=== PATIENT | female | born 1945 | race Caucasian/White ===

== ENCOUNTER 2021-11-30 16:29 | Inpatient (IN) | payer BC, MEDICARE ==
[2021-11-30] MEDS ORDERED: SODIUM CHLORIDE 0.9% 1,000 ML IV STA ×2 (16:36)
--- NOTE | 2021-11-30 16:46 | ED ---
Weakness HPI - General Chief complaint: Weakness Stated complaint: Weakness Time Seen by Provider: 11/30/21 16:30 Source: EMS, RN notes reviewed Mode of arrival: EMS Limitations: physical limitation - History of Present Illness Initial comments: 76-year-old female history of COPD was still smoker who was brought in by EMS because of generalized weakness she was found by family be sitting in a chair when she apparently been for some time she had suffered urinary or fecal incontinence she also is had no food since yesterday. Profoundly weak and could not ambulate. She is brought in by EMS for evaluation she has any chest pain fevers chills nausea vomiting sweats. She does complain of pain to her buttock area she does have evidence of decubitus ulceration to the coccyx area per parents. MD Complaint: generalized weakness - Related Data Home Medications Medication Instructions Recorded Confirmed Albuterol Inhaler [Ventolin Hfa 2 puff INHALATION RT-QID PRN 11/30/21 11/30/21 Inhaler] Aspirin EC [Ecotrin Low Dose] 81 mg PO DAILY PRN 11/30/21 11/30/21 carvediloL [Coreg] 6.25 mg PO BID 11/30/21 11/30/21 Allergies Allergy/AdvReac Type Severity Reaction Status Date / Time No Known Allergies Allergy Verified 11/30/21 18:04 Review of Systems ROS Statement: Those systems with pertinent positive or pertinent negative responses have been documented in the HPI. ROS Other: All systems not noted in ROS Statement are negative. Past Medical History Past Medical History: Hypertension History of Any Multi-Drug Resistant Organisms: None Reported Additional Past Surgical History / Comment(s): D&C Past Psychological History: No Psychological Hx Reported Smoking Status: Current every day smoker Past Alcohol Use History: Daily, Heavy Past Drug Use History: Marijuana General Exam - General Exam Comments Initial Comments: This is a well-developed frail-appearing female who is awake alert oriented 4 Limitations: physical limitation General appearance: alert, in no apparent distress Head exam: Present: atraumatic, normocephalic, normal inspection Eye exam: Present: normal appearance, PERRL, EOMI. Absent: scleral icterus, conjunctival injection, periorbital swelling ENT exam: Present: mucous membranes dry Neck exam: Present: normal inspection. Absent: tenderness, meningismus, lymphadenopathy Respiratory exam: Present: normal lung sounds bilaterally. Absent: respiratory distress, wheezes, rales, rhonchi, stridor Cardiovascular Exam: Present: regular rate, normal rhythm, normal heart sounds. Absent: systolic murmur, diastolic murmur, rubs, gallop, clicks GI/Abdominal exam: Present: soft, normal bowel sounds. Absent: distended, tenderness, guarding, rebound, rigid Rectal exam: Present: other (Examination of the. He'll region reveals a early stage sacral decubitus ulcer with some minimal breakdown. Also a toothpick was found in the patient's previous.) Extremities exam: Present: normal inspection, full ROM, normal capillary refill. Absent: tenderness, pedal edema, joint swelling, calf tenderness Back exam: Present: normal inspection Neurological exam: Present: alert, oriented X3, CN II-XII intact Psychiatric exam: Present: normal affect, normal mood Skin exam: Present: warm, dry, intact, normal color. Absent: rash Course Vital Signs 11/30/21 11/30/21 11/30/21 16:31 17:00 17:47 Temperature 97.5 F L Pulse Rate 93 78 88 Respiratory 18 19 18 Rate Blood Pressure 100/83 100/83 105/61 O2 Sat by Pulse 97 96 97 Oximetry 11/30/21 18:00 Temperature Pulse Rate 80 Respiratory 21 Rate Blood Pressure 105/71 O2 Sat by Pulse 97 Oximetry EKG Findings - EKG Results: EKG: interpreted by LYNNE, sinus rhythm (Sinus rhythm 83 TN interval 142 QRS duration 81 QT/QTC 372/[address]-T wave changes) Medical Decision Making - Medical Decision Making Patient does have an elevated white blood cell count with left shift evidence of urinary tract infection patient also hypomagnesemia dehydration she will be adm itted I did discuss the case with Kylee torres for Dr. Rock - Lab Data Result diagrams: 11/30/21 16:47 11/30/21 16:47 Lab Results 11/30/21 11/30/21 11/30/21 Range/Units 16:47 16:47 16:47 WBC 19.0 H (3.8-10.6) k/uL RBC 5.40 (3.80-5.40) m/uL Hgb 16.1 H (11.4-16.0) gm/dL Hct 50.2 H (34.0-46.0) % MCV 93.0 (80.0-100.0) fL MCH 29.8 (25.0-35.0) pg MCHC 32.0 (31.0-37.0) g/dL RDW 14.3 (11.5-15.5) % Plt Count 147 L (150-450) k/uL MPV 9.6 Neutrophils % 89 % Lymphocytes % 3 % Monocytes % 5 % Eosinophils % 1 % Basophils % 0 % Neutrophils # 17.0 H (1.3-7.7) k/uL Lymphocytes # 0.6 L (1.0-4.8) k/uL Monocytes # 1.0 (0-1.0) k/uL Eosinophils # 0.2 (0-0.7) k/uL Basophils # 0.0 (0-0.2) k/uL PT 11.1 (9.0-12.0) sec INR 1.0 (<1.2) APTT 27.1 (22.0-30.0) sec Sodium (137-145) mmol/L Potassium (3.5-5.1) mmol/L Chloride (98-107) mmol/L Carbon Dioxide (22-30) mmol/L Anion Gap mmol/L BUN (7-17) mg/dL Creatinine (0.52-1.04) mg/dL Est GFR (CKD-EPI)AfAm (>60 ml/min/1.73 sqM) Est GFR (CKD-EPI)NonAf (>60 ml/min/1.73 sqM) Glucose (74-99) mg/dL Plasma Lactic Acid Ian (0.7-2.0) mmol/L Calcium (8.4-10.2) mg/dL Magnesium (1.6-2.3) mg/dL Total Bilirubin (0.2-1.3) mg/dL AST (14-36) U/L ALT (4-34) U/L Alkaline Phosphatase (38-126) U/L Troponin I (0.000-0.034) ng/mL NT-Pro-B Natriuret Pep pg/mL Total Protein (6.3-8.2) g/dL Albumin (3.5-5.0) g/dL Urine Color Light [place] Urine Appearance Turbid H (Clear) Urine pH 5.5 (5.0-8.0) Ur Specific [place] 1.021 (1.001-1.035) Urine Protein 2+ H (Negative) Urine Glucose (UA) Negative (Negative) Urine Ketones 1+ H (Negative) Urine Blood Large H (Negative) Urine Nitrite Positive H (Negative) Urine Bilirubin Negative (Negative) Urine Urobilinogen <2.0 (<2.0) mg/dL Ur Leukocyte Esterase Large H (Negative) Urine RBC 54 H (0-5) /hpf Urine WBC >182 H (0-5) /hpf Urine WBC Clumps Many H (None) /hpf Ur Squamous Epith Cells 17 H (0-4) /hpf Urine Bacteria Many H (None) /hpf Urine Mucus Many H (None) /hpf 11/30/21 11/30/21 11/30/21 Range/Units 16:47 16:47 16:47 WBC (3.8-10.6) k/uL RBC (3.80-5.40) m/uL Hgb (11.4-16.0) gm/dL Hct (34.0-46.0) % MCV (80.0-100.0) fL MCH (25.0-35.0) pg MCHC (31.0-37.0) g/dL RDW (11.5-15.5) % Plt Count (150-450) k/uL MPV Neutrophils % % Lymphocytes % % Monocytes % % Eosinophils % % Basophils % % Neutrophils # (1.3-7.7) k/uL Lymphocytes # (1.0-4.8) k/uL Monocytes # (0-1.0) k/uL Eosinophils # (0-0.7) k/uL Basophils # (0-0.2) k/uL PT (9.0-12.0) sec INR (<1.2) APTT (22.0-30.0) sec Sodium 129 L (137-145) mmol/L Potassium 4.2 (3.5-5.1) mmol/L Chloride 96 L (98-107) mmol/L Carbon Dioxide 21 L (22-30) mmol/L Anion Gap 12 mmol/L BUN 29 H (7-17) mg/dL Creatinine 0.91 (0.52-1.04) mg/dL Est GFR (CKD-EPI)AfAm 71 (>60 ml/min/1.73 sqM) Est GFR (CKD-EPI)NonAf 62 (>60 ml/min/1.73 sqM) Glucose 96 (74-99) mg/dL Plasma Lactic Acid Ian 1.3 (0.7-2.0) mmol/L Calcium 8.2 L (8.4-10.2) mg/dL Magnesium 1.2 L (1.6-2.3) mg/dL Total Bilirubin 1.0 (0.2-1.3) mg/dL AST 23 (14-36) U/L ALT 9 (4-34) U/L Alkaline Phosphatase 88 (38-126) U/L Troponin I <0.012 (0.000-0.034) ng/mL NT-Pro-B Natriuret Pep pg/mL Total Protein 5.8 L (6.3-8.2) g/dL Albumin 2.8 L (3.5-5.0) g/dL Urine Color Urine Appearance (Clear) Urine pH (5.0-8.0) Ur Specific [place] (1.001-1.035) Urine Protein (Negative) Urine Glucose (UA) (Negative) Urine Ketones (Negative) Urine Blood (Negative) Urine Nitrite (Negative) Urine Bilirubin (Negative) Urine Urobilinogen (<2.0) mg/dL Ur Leukocyte Esterase (Negative) Urine RBC (0-5) /hpf Urine WBC (0-5) /hpf Urine WBC Clumps (None) /hpf Ur Squamous Epith Cells (0-4) /hpf Urine Bacteria (None) /hpf Urine Mucus (None) /hpf 11/30/21 Range/Units 16:47 WBC (3.8-10.6) k/uL RBC (3.80-5.40) m/uL Hgb (11.4-16.0) gm/dL Hct (34.0-46.0) % MCV (80.0-100.0) fL MCH (25.0-35.0) pg MCHC (31.0-37.0) g/dL RDW (11.5-15.5) % Plt Count (150-450) k/uL MPV Neutrophils % % Lymphocytes % % Monocytes % % Eosinophils % % Basophils % % Neutrophils # (1.3-7.7) k/uL Lymphocytes # (1.0-4.8) k/uL Monocytes # (0-1.0) k/uL Eosinophils # (0-0.7) k/uL Basophils # (0-0.2) k/uL PT (9.0-12.0) sec INR (<1.2) APTT (22.0-30.0) sec Sodium (137-145) mmol/L Potassium (3.5-5.1) mmol/L Chloride (98-107) mmol/L Carbon Dioxide (22-30) mmol/L Anion Gap mmol/L BUN (7-17) mg/dL Creatinine (0.52-1.04) mg/dL Est GFR (CKD-EPI)AfAm (>60 ml/min/1.73 sqM) Est GFR (CKD-EPI)NonAf (>60 ml/min/1.73 sqM) Glucose (74-99) mg/dL Plasma Lactic Acid Ian (0.7-2.0) mmol/L Calcium (8.4-10.2) mg/dL Magnesium (1.6-2.3) mg/dL Total Bilirubin (0.2-1.3) mg/dL AST (14-36) U/L ALT (4-34) U/L Alkaline Phosphatase (38-126) U/L Troponin I (0.000-0.034) ng/mL NT-Pro-B Natriuret Pep 3600 pg/mL Total Protein (6.3-8.2) g/dL Albumin (3.5-5.0) g/dL Urine Color Urine Appearance (Clear) Urine pH (5.0-8.0) Ur Specific [place] (1.001-1.035) Urine Protein (Negative) Urine Glucose (UA) (Negative) Urine Ketones (Negative) Urine Blood (Negative) Urine Nitrite (Negative) Urine Bilirubin (Negative) Urine Urobilinogen (<2.0) mg/dL Ur Leukocyte Esterase (Negative) Urine RBC (0-5) /hpf Urine WBC (0-5) /hpf Urine WBC Clumps (None) /hpf Ur Squamous Epith Cells (0-4) /hpf Urine Bacteria (None) /hpf Urine Mucus (None) /hpf - Radiology Data Radiology results: report reviewed (Imaging reviewed no acute findings), image reviewed Disposition Clinical Impression: Urinary tract infection, Dehydration, Hypomagnesemia, Failure to thrive, Decubitus skin ulcer, Leukocytosis Disposition: ADMITTED IP TO THIS HOSP Condition: Fair Referrals: Patti Edwards MD [Primary Care Provider] - 1-2 days Decision Date: 11/30/21 Decision Time: 20:00
[2021-11-30 17:04] LABS: Basophils % (A) 0 %; Eosinophils # (A) 0.2 k/uL (0-0.7); Eosinophils % (A) 1 %; HCT 50.2 % (34.0-46.0); HGB 16.1 gm/dL (11.4-16.0); Lymphocytes # (A) 0.6 k/uL (1.0-4.8); Lymphocytes % (A) 3 %; MCH 29.8 pg (25.0-35.0); Mean Platelet Volume 9.6; Monocytes % (A) 5 %; Neutrophils % (A) 89 %; Platelet Count 147 k/uL (150-450); RDW 14.3 % (11.5-15.5)
[2021-11-30 17:14] LABS: Albumin 2.8 g/dL (3.5-5.0); Calcium 8.2 mg/dL (8.4-10.2); Magnesium 1.2 mg/dL (1.6-2.3); Potassium 4.2 mmol/L (3.5-5.1); Total Protein 5.8 g/dL (6.3-8.2)
[2021-11-30 17:27] LABS: Partial Thromboplastin Time 27.1 sec (22.0-30.0); Prothrombin Time 11.1 sec (9.0-12.0)
--- NOTE | 2021-11-30 18:06 | XR ---
EXAMINATION TYPE: XR chest 2V DATE OF EXAM: 11/30/2021 COMPARISON: NONE HISTORY: Weakness TECHNIQUE: 2 view FINDINGS: There is pulmonary hyperinflation and flattening of the diaphragm. There is some coarsening of interstitial markings in the left lower lobe. There are no hilar masses. There is some osteopenia . No pleural effusion. IMPRESSION: COPD. Mild pulmonary fibrotic changes. Normal heart.
[2021-11-30] MEDS ORDERED: cefTRIAXone IN SWFI 1,000 MG/10 ML SYRINGE IVP STA (19:33)
[2021-11-30 19:34] LABS: Appearance,Urine Turbid (Clear); Bacteria,Urine Many /hpf; Bilirubin,Urine Negative (Negative); Blood,Urine Large (Negative); Color,Urine Light Orange; Glucose,Urine (UA) Negative (Negative); Ketones,Urine 1+ (Negative); Leukocyte Esterase,Urine Large (Negative); Mucus,Urine Many /hpf; Nitrite,Urine Positive (Negative); PH, Urine 5.5 (5.0-8.0); Protein,Urine 2+ (Negative); RBC,Urine 54 /hpf (0-5); Specific Gravity,Urine 1.021 (1.001-1.035); Squamous Epithelial Cell,Urine 17 /hpf (0-4); Urobilinogen,Urine <2.0 mg/dL (<2.0); WBC,Urine >182 /hpf (0-5)
[2021-11-30] MEDS: MAGNESIUM SULFATE-D5W PMX 1 GM in DEXTROSE/WATER 1 100ML.BAG IVPB SCH ×2 (20:22→21:48)
[2021-11-30] MEDS ORDERED: ONDANSETRON 4 MG/2 ML VIAL IVP PRN (20:40)
[2021-11-30] MEDS ORDERED: ACETAMINOPHEN TAB 325 MG TAB PO PRN (20:40)
[2021-11-30] MEDS ORDERED: NALOXONE 0.4 MG/ML 1 ML VIAL IV PRN (20:40)
[2021-11-30] MEDS ORDERED: ASPIRIN 81 MG PO PRN (20:44)
[2021-12-01] MEDS: SODIUM CHLORIDE 0.9% 1,000 ML IV SCH ×3 (04:51→12:28)
[2021-12-01] MEDS: ALBUTEROL NEBULIZED 2.5 MG/3 ML INHALATION PRN (07:59)
[2021-12-01] MEDS: carvediloL 6.25 MG TAB PO SCH ×2 (08:00→18:23)
[2021-12-01] MEDS: PANTOPRAZOLE 40 MG/10 ML VIAL IV SCH (08:04)
[2021-12-01] MEDS ORDERED: cefTRIAXone IN SWFI 1,000 MG/10 ML SYRINGE IVP SCH (09:00)
[2021-12-01] MEDS ORDERED: ALBUTEROL HFA INHALER INHALATION PRN (09:40)
--- NOTE | 2021-12-01 11:35 | P.HPIM ---
History of Present Illness Patient is an 76-year-old female came in with complains of generalized weakness and confusion. Patient denied any symptoms of urinary tract infection at this time but patient has significant abnormal urine and was started on antibiotics for urinary tract infection any other. Patient had urinary and fecal incontinence although no evidence of seizures was documented and reported by the family no tongue biting at this time patient also has significant alcoholism history presently not having any withdrawals patient is alert oriented 3 at this time patient says his last her last drink was 2 days ago patient was complaining of buttock pain apparently yesterday where she didn't have any decubitus ulceration patient denied any systemic symptoms to me patient has some vague abdominal pain in the epigastric area. Patient does have a smoking history, smokes about a pack per day REVIEW OF SYSTEMS: CONSTITUTIONAL: No fever, no malaise, no fatigue. HEENT: No recent visual problems or hearing problems. Denied any sore throat. CARDIOVASCULAR: No chest pain, orthopnea, PND, no palpitations, no syncope. PULMONARY: No shortness of breath, no cough, no hemoptysis. GASTROINTESTINAL: As mentioned in HPI NEUROLOGICAL: No headaches, no weakness, no numbness. HEMATOLOGICAL: Denies any bleeding or petechiae. GENITOURINARY: Denies any burning micturition, frequency, or urgency. MUSCULOSKELETAL/RHEUMATOLOGICAL: Denies any joint pain, swelling, or any muscle pain. ENDOCRINE: Denies any polyuria or polydipsia. The rest of the 14-point review of systems is negative. PHYSICAL EXAMINATION: GENERAL: The patient is alert and oriented x3, not in any acute distress. Well developed, well nourished. HEENT: Pupils are round and equally reacting to light. EOMI. No scleral icterus. No conjunctival pallor. Normocephalic, atraumatic. No pharyngeal erythema. No thyromegaly. CARDIOVASCULAR: S1 and S2 present. No murmurs, rubs, or gallops. PULMONARY: Chest is clear to auscultation, no wheezing or crackles. ABDOMEN: Soft, nontender, nondistended, normoactive bowel sounds. No palpable organomegaly. MUSCULOSKELETAL: No joint swelling or deformity. EXTREMITIES: No cyanosis, clubbing, or pedal edema. NEUROLOGICAL: Gross neurological examination did not reveal any focal deficits. SKIN: No rashes. Assessment and plan -Possibility of for urinary tract infection continue with Rocephin awaiting urine cultures -Hypovolemic hypernatremia secondary to alcoholism dehydration continue with IV fluids cut down to 75 mL per hour -Alcohol abuse history presently doesn't have any withdrawals or alcohol use was couple days ago because of which I do not expect any alcohol withdrawals patient may or may not have had a seizure since his alcohol withdrawal seizures no further workup is needed I will not require any other medications. -Nicotine use: Counseling was provided -Generalized weakness related to chronic alcoholism and may be a competent of UTI that may have contributed to her weakness. Physical therapy and outpatient therapy evaluation -Possible alcoholic gastritis for which patient was started on Protonix DVT prophylaxis: Lovenox Past Medical History Past Medical History: Hypertension History of Any Multi-Drug Resistant Organisms: None Reported Additional Past Surgical History / Comment(s): D&C Past Anesthesia/Blood Transfusion Reactions: No Reported Reaction Past Psychological History: No Psychological Hx Reported Smoking Status: Current every day smoker Past Alcohol Use History: Daily, Heavy Additional Past Alcohol Use History / Comment(s): Pt states she drinks a half of a half pint a day. States she's been drinking since she was 18 and quit for 12 years and has never gone through DTs. Past Drug Use History: Marijuana Medications and Allergies Home Medications Medication Instructions Recorded Confirmed Type Albuterol Inhaler [Ventolin Hfa 2 puff INHALATION RT-QID PRN 11/30/21 11/30/21 History Inhaler] Aspirin EC [Ecotrin Low Dose] 81 mg PO DAILY PRN 11/30/21 11/30/21 History carvediloL [Coreg] 6.25 mg PO BID 11/30/21 11/30/21 History Allergies Allergy/AdvReac Type Severity Reaction Status Date / Time No Known Allergies Allergy Verified 11/30/21 18:04 Physical Exam Vitals: Vital Signs Temp Pulse Pulse Resp BP BP Pulse Ox 12/01/21 08:12 98 16 154/88 96 12/01/21 07:59 98 12/01/21 07:39 93 18 154/99 99 12/01/21 06:20 96 16 109/84 12/01/21 00:50 98.1 F 72 16 145/83 95 12/01/21 00:00 72 16 11/30/21 18:00 80 21 105/71 97 08/01/22 17:47 88 18 105/61 97 11/30/21 17:00 78 19 100/83 96 11/30/21 16:31 97.5 F L 93 18 100/83 97 Intake and Output 11/30/21 12/01/21 12/01/21 22:59 06:59 14:59 Other: Voiding Method Bedpan # Voids 1 Weight 61.235 kg 61.235 kg Results CBC & Chem 7: 11/30/21 16:47 11/30/21 16:47 Labs: Abnormal Lab Results - Last 24 Hours (Table) 11/30/21 11/30/21 11/30/21 Range/Units 16:47 16:47 16:47 WBC 19.0 H (3.8-10.6) k/uL Hgb 16.1 H (11.4-16.0) gm/dL Hct 50.2 H (34.0-46.0) % Plt Count 147 L (150-450) k/uL Neutrophils # 17.0 H (1.3-7.7) k/uL Lymphocytes # 0.6 L (1.0-4.8) k/uL Sodium 129 L (137-145) mmol/L Chloride 96 L (98-107) mmol/L Carbon Dioxide 21 L (22-30) mmol/L BUN 29 H (7-17) mg/dL Calcium 8.2 L (8.4-10.2) mg/dL Magnesium 1.2 L (1.6-2.3) mg/dL Total Protein 5.8 L (6.3-8.2) g/dL Albumin 2.8 L (3.5-5.0) g/dL Urine Appearance Turbid H (Clear) Urine Protein 2+ H (Negative) Urine Ketones 1+ H (Negative) Urine Blood Large H (Negative) Urine Nitrite Positive H (Negative) Ur Leukocyte Esterase Large H (Negative) Urine RBC 54 H (0-5) /hpf Urine WBC >182 H (0-5) /hpf Urine WBC Clumps Many H (None) /hpf Ur Squamous Epith Cells 17 H (0-4) /hpf Urine Bacteria Many H (None) /hpf Urine Mucus Many H (None) /hpf Microbiology - Last 24 Hours (Table) 11/30/21 16:47 Urine Culture - Preliminary Urine,Clean Catch Thrombosis Risk Factor Assmnt - Choose All That Apply Each Factor Represents 1 point: Abnormal pulmonary function (COPD) Each Risk Factor Represents 2 Points: Patient confined to bed Each Risk Factor Represents 3 Points: Age 75 years or older Thrombosis Risk Factor Assessment Total Risk Factor Score: 6 Thrombosis Risk Factor Assessment Level: High Risk
[2021-12-02] MEDS: MEROPENEM 1 GM in SODIUM CHLORIDE 0.9% 100 ML IVPB SCH ×3 (00:21→16:12)
[2021-12-02] MEDS: carvediloL 6.25 MG TAB PO SCH ×2 (07:55→16:12)
[2021-12-02] MEDS: ENOXAPARIN 40 MG/0.4 ML SYRINGE SQ SCH (07:55)
[2021-12-02] MEDS: PANTOPRAZOLE 40 MG/10 ML VIAL IV SCH (10:07)
[2021-12-02 10:30] LABS: HCT 50.3 % (37.2-46.3); HGB 16.5 g/dL (12.0-15.0); MCH 28.8 pg (27.0-32.0); MCHC 32.8 g/dL (32.0-37.0); MCV 87.8 fL (80.0-97.0); Mean Platelet Volume 12.2 fL (9.5-12.2); NRBC Per 100 WBC 0 /100 WBCS (0.0-0.0); Platelet Count 178 X 10*3/uL (140-440); RBC 5.73 X 10*6/uL (4.10-5.20); RDW 15.3 % (11.5-14.5); WBC 13.28 X 10*3/uL (4.50-10.00)
[2021-12-02 10:42] LABS: African American GFR (CKD) 79.4 (60.0-200.0); Albumin 2.5 g/dL (3.8-4.9); Albumin/Globulin Ratio 0.97 (1.60-3.17); Anion Gap 10.8 mmol/L (10.00-18.00); BUN/Creat Ratio 17.96 Ratio (12.00-20.00); Calcium 8.2 mg/dL (8.7-10.3); Carbon Dioxide 22.3 mmol/L (20.0-27.5); Globulin 2.6 g/dL (1.6-3.3); Non-African American GFR(CKD) 68.5 (60.0-200.0); Total Bilirubin 0.3 mg/dL (0.30-1.20); Total Protein 5.1 g/dL (6.2-8.2)
--- NOTE | 2021-12-02 16:15 | P.PN ---
Subjective Progress Note Date: 12/02/21 Patient is an 76-year-old female came in with complains of generalized weakness and confusion. Patient denied any symptoms of urinary tract infection at this time but patient has significant abnormal urine and was started on antibiotics for urinary tract infection any other. Patient had urinary and fecal incontinence although no evidence of seizures was documented and reported by the family no tongue biting at this time patient also has significant alcoholism history presently not having any withdrawals patient is alert oriented 3 at this time patient says his last her last drink was 2 days ago patient was complaining of buttock pain apparently yesterday where she didn't have any decubitus ulceration patient denied any systemic symptoms to me patient has some vague abdominal pain in the epigastric area. Patient does have a smoking history, smokes about a pack per day 12/02/2021 Patient seen and evaluated in follow-up this morning lethargic although arousable alert and oriented. Patient is maintained on IV antibiotics with infectious disease following and preliminary culture showing gram-negative bacilli and antibiotics being transitioned to meropenem as blood cultures are positive for gram-negative bacilli and some showing E. coli and will need to continue with daily blood cultures to monitor for clearance of bacteremia. Patient is afebrile and denies chest pain or shortness of breath. Patient reports she is eating although not very much as she does not have much of an a ppetite. Patient is not up and walking and is weak and will have physical therapy work with the patient. Case management also following as patient will need ECF on discharge. Vital signs are currently stable and patient is afebrile. Review of systems: Constitutional: No reports of fatigue, fever, or chills Cardiovascular: No reports of chest pain or palpitations Respiratory: No reports of shortness of breath or cough GI: No reports of nausea, vomiting, or diarrhea : No reports of dysuria or retention Neurovascular: reports of weakness and does not walk much at all All medications have been reviewed Active Medications Acetaminophen (Acetaminophen Tab 325 Mg Tab) 650 mg PO Q6HR PRN PRN Reason: Mild Pain or Fever > 100.5 Albuterol Sulfate (Albuterol Nebulized 2.5 Mg/3 Ml) 2.5 mg INHALATION RT-QID PRN PRN Reason: Shortness Of Breath Last Admin: 12/01/21 07:59 Dose: 2.5 mg Aspirin (Aspirin 81 Mg) 81 mg PO DAILY PRN PRN Reason: Pain Carvedilol (Carvedilol 6.25 Mg Tab) 6.25 mg PO BID-W/MEALS [facility] Last Admin: 12/02/21 07:55 Dose: 6.25 mg Enoxaparin Sodium (Enoxaparin 40 Mg/0.4 Ml Syringe) 40 mg SQ DAILY [facility] [place] Last Admin: 12/02/21 07:55 Dose: 40 mg Sodium Chloride (Saline 0.9%) 1,000 mls @ 75 mls/hr IV .[id number] [facility] [place] Last Admin: 12/01/21 12:28 Dose: 75 mls/hr Meropenem 1 gm/ Sodium (Chloride) 100 mls @ 33.3 mls/hr IVPB Q8HR [facility] [place]; Protocol Last Admin: 12/02/21 11:01 Dose: Not Given Naloxone HCl (Naloxone 0.4 Mg/Ml 1 Ml Vial) 0.2 mg IV Q2M PRN PRN Reason: Opioid Reversal Ondansetron HCl (Ondansetron 4 Mg/2 Ml Vial) 4 mg IVP Q8HR PRN PRN Reason: Nausea And Vomiting Last Admin: 12/01/21 13:12 Dose: 4 mg Pantoprazole Sodium (Pantoprazole 40 Mg/10 Ml Vial) 40 mg IV DAILY [facility] [place] Last Admin: 12/02/21 10:07 Dose: Not Given PHYSICAL EXAMINATION: GENERAL: The patient is alert and oriented x3, asleep although easily arousable ill-appearing, thin built, cachectic HEENT: Pupils are round and equally reacting to light. EOMI. No scleral icterus. No conjunctival pallor. Normocephalic, atraumatic. No pharyngeal erythema. No thyromegaly. CARDIOVASCULAR: S1 and S2 present. No murmurs, rubs, or gallops. PULMONARY: Chest is clear to auscultation, no wheezing or crackles. ABDOMEN: Soft, thin, scaphoid nontender, nondistended, normoactive bowel sounds. No palpable organomegaly. MUSCULOSKELETAL: No joint swelling or deformity. EXTREMITIES: No cyanosis, clubbing, or pedal edema. NEUROLOGICAL: Gross neurological examination did not reveal any focal deficits. Diffusely weak SKIN: No rashes. Assessment: -Acute urinary tract infection, present on admission with bacteremia showing E. coli -Hypovolemic hyponatremia secondary to alcoholism and dehydration continue with IV fluids cut down to 75 mL per hour -Hypomagnesemia -Hypertension history -Continued ongoing alcohol abuse , monitor for any withdrawal signs although not actively withdrawing at this time -Nicotine use: Counseling was provided -Generalized weakness related to chronic alcoholism and may be a component of UTI that may have contributed to her weakness. Physical therapy and outpatient therapy evaluation -Possible alcoholic gastritis for which patient was started on Protonix -DVT prophylaxis: Lovenox -Full code Plan: Recommend continue with IV antibiotics and being transitioned to cefepime with infectious disease following as blood cultures are being positive with gram- negative bacilli and preliminary showing E. coli. Recommend physical therapy evaluation and monitoring as patient will likely require ECF Recommend monitoring for any alcohol withdrawal and will use [facility] protocol as needed Recommend follow-up labs in the a.m. 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 Dr. Jodi MD I have performed a history and examination and MDM of this patient, discussed the same with the dictator, and agree with the dictator's assessment and plan as written ,documented as a scribe. Based on total visit time, I have performed more than 50% of the visit. Objective - Vital Signs Vital signs: Vital Signs Temp 98.2 F 12/02/21 07:17 Pulse 72 12/02/21 07:58 Resp 17 12/02/21 07:58 BP 130/80 12/02/21 07:17 Pulse Ox 93 L 12/02/21 07:17 FiO2 Intake & Output 12/01/21 12/02/21 12/02/21 18:59 06:59 18:59 Other: Voiding Method External Catheter External Catheter # Voids 1 2 - Labs CBC & Chem 7: 12/02/21 06:44 12/02/21 06:44 Labs: Microbiology - Last 24 Hours (Table) 11/30/21 20:17 Blood Culture Gram Stain - Preliminary Blood Blood Culture - Preliminary Escherichia coli 11/30/21 20:17 Blood Culture Gram Stain - Preliminary Blood 11/30/21 20:17 Blood Culture - Final Blood 11/30/21 20:17 Blood Culture - Final Blood
--- NOTE | 2021-12-02 19:44 | P.CONS ---
History of Present Illness - Reason for Consult Consult date: 12/02/21 - History of Present Illness Patient is a 76-year-old female with a past medical he significant for COPD presenting to the hospital 2 days ago via EMS for evaluation of generalized weakness and the patient was found by the family sitting in the chair and apparently patient been there for a while did have evidence of urinary and fecal incontinence and no food for a day patient on presentation to the hospital was afebrile and no fever have been recorded subsequently patient did have white count of 19,000 with a left shift creatinine was normal liver enzymes are normal patient did have a positive UA patient did have blood and urine cultures growing E. coli with concern for possible ESBL pathogen patient was initially on Rocephin infectious disease was consulted for further management of antibiotic therapy, patient medically switched over to meropenem pending evaluation this morning patient the time evaluation remains to be lethargic but awake good historian no vomiting or diarrhea was reported by nursing staff most information has been obtained from review the chart and talking to nursing staff Past Medical History Past Medical History: Hypertension History of Any Multi-Drug Resistant Organisms: None Reported Additional Past Surgical History / Comment(s): D&C Past Anesthesia/Blood Transfusion Reactions: No Reported Reaction Past Psychological History: No Psychological Hx Reported Smoking Status: Current every day smoker Past Alcohol Use History: Daily, Heavy Additional Past Alcohol Use History / Comment(s): Pt states she drinks a half of a half pint a day. States she's been drinking since she was 18 and quit for 12 years and has never gone through DTs. Past Drug Use History: Marijuana Medications and Allergies Home Medications Medication Instructions Recorded Confirmed Type Albuterol Inhaler [Ventolin Hfa 2 puff INHALATION RT-QID PRN 11/30/21 11/30/21 History Inhaler] Aspirin EC [Ecotrin Low Dose] 81 mg PO DAILY PRN 11/30/21 11/30/21 History carvediloL [Coreg] 6.25 mg PO BID 11/30/21 11/30/21 History Allergies Allergy/AdvReac Type Severity Reaction Status Date / Time No Known Allergies Allergy Verified 11/30/21 18:04 Physical Exam Vitals: Vital Signs Temp Pulse Pulse Resp BP BP Pulse Ox 12/02/21 07:58 72 17 12/02/21 07:17 98.2 F 72 17 130/80 93 L 12/02/21 02:50 98.0 F 80 17 104/69 95 12/01/21 20:00 97.6 F 72 16 126/75 96 12/01/21 19:04 97.5 F L 79 17 155/85 96 12/01/21 16:51 98.1 F 80 18 153/99 98 12/01/21 15:16 73 16 117/92 97 12/01/21 12:13 97.6 F 76 20 156/97 97 Intake and Output 12/01/21 12/02/21 12/02/21 22:59 06:59 14:59 Other: Voiding Method External Catheter External Catheter # Voids 1 2 Results CBC & Chem 7: 12/02/21 06:44 12/02/21 06:44 Labs: Microbiology - Last 24 Hours (Table) 11/30/21 20:17 Blood Culture Gram Stain - Preliminary Blood Blood Culture - Preliminary Escherichia coli 11/30/21 20:17 Blood Culture Gram Stain - Preliminary Blood 11/30/21 20:17 Blood Culture - Final Blood 11/30/21 20:17 Blood Culture - Final Blood Assessment and Plan Plan: 1patient presented to hospital with generalized weakness no energy in this patient did have a significant elevated white count positive UA high clinical suspicion for symptomatic urinary tract infection likely complicated as the patient did have evidence of bacteremia likely secondary to urinary source. 2patient to continue meropenem 1 g every 8 hours waiting for the culture to finalize. 3blood cultures will be repeated document clearance of bacteremia. 4obtain ultrasound kidney and bladder to make sure evidence of any structural abnormality. We will follow on clinical condition and cultures to further adjust medication if needed Thank you for this consultation will follow this patient along with you
[2021-12-03] MEDS: SODIUM CHLORIDE 0.9% 1,000 ML IV SCH ×3 (00:49→09:50)
[2021-12-03] MEDS: MEROPENEM 1 GM in SODIUM CHLORIDE 0.9% 100 ML IVPB SCH ×3 (00:49→16:40)
[2021-12-03] MEDS: carvediloL 6.25 MG TAB PO SCH ×2 (07:40→16:39)
[2021-12-03] MEDS: ENOXAPARIN 40 MG/0.4 ML SYRINGE SQ SCH (07:40)
[2021-12-03] MEDS: PANTOPRAZOLE 40 MG/10 ML VIAL IV SCH (07:57)
--- NOTE | 2021-12-03 08:18 | US ---
EXAMINATION TYPE: US kidneys/renal and bladder DATE OF EXAM: 12/03/2021 COMPARISON: NONE CLINICAL HISTORY: uti and bacteremia. UTI limited study patient unable to roll. EXAM MEASUREMENTS: Right Kidney: 10 x 3.9 x 4.1 cm Left Kidney: 9.3 x 5.8 x 4.1 cm Right Kidney: No hydronephrosis or masses seen Left Kidney: No hydronephrosis or masses seen Bladder: patient has cathter in Bilateral Jets seen: No There is no evidence for hydronephrosis at this point in time. No nephrolithiasis is seen. No lizzie s are identified. Cortical medullary differentiation is maintained IMPRESSION: Renal sizes as described.
[2021-12-03 10:43] LABS: HCT 48.5 % (37.2-46.3); HGB 16.4 g/dL (12.0-15.0); MCH 29.5 pg (27.0-32.0); MCHC 33.8 g/dL (32.0-37.0); MCV 87.2 fL (80.0-97.0); Mean Platelet Volume 11.2 fL (9.5-12.2); NRBC Per 100 WBC 0 /100 WBCS (0.0-0.0); Platelet Count 172 X 10*3/uL (140-440); RBC 5.56 X 10*6/uL (4.10-5.20); WBC 10.14 X 10*3/uL (4.50-10.00)
--- NOTE | 2021-12-03 10:53 | CDI ---
Documentation Clarification Form Date: 12/03/2021 09:52:49 AM From: Marion Fitch RN CCDS Admit Date: 11/30/2021 08:40:00 PM Patient Name: Brenda Carlson Visit Number: [id number] Discharge Date: ATTENTION: The Clinical Documentation Specialists (CDI) and [facility] Coding Staff appreciate your assistance in clarifying documentation. Please respond to the clarification below the line at the bottom and electronically sign. The CDI & [facility] Coding staff will review the response and follow-up if needed. Please note: Queries are made part of the Legal Health Record. If you have any questions, please contact the author of this message via ITS. Dr. Peterson Zapata There is documentation of bacteremia Medicine progress note, 12/02. Bacteremia is considered a lab finding. Additional clarification regarding bacteremia is requested. Patient history/risk factors: 76-year-old female presents to the ED with generalized weakness was found by family in a chair with urinary and fecal incontinence. Profoundly weak and could not ambulate. Medical History: HTN and Daily Alcohol use. ED Note, 11/30. Clinical Indicators: WBC, 11/30: 19.0 Neutrophils, 11/30: 17.0 Blood Culture, 11/30: Gram negative bacilli Escherichia coli Urine Culture, 11/30: Gram Negative Bacilli ID Consult, 11/30: Patient did have a significant elevated white count positive UA high clinical suspicion for symptomatic urinary tract infection likely complicated as the patient did have evidence of bacteremia likely secondary to urinary source. Treatment: 12/01 D/Cd on 12/01 Ceftriaxone 2gm IVPB Q24H one dose given; 12/02 Meropenem 1gm IVPB Q8HR; 11/30 0.9NS 1L bolus x 1. Please provide additional clarification regarding the etiology/cause and/or clinical significance of the bacteremia: [x ] Bacteremia is due to UTI with sepsis [ ] Bacteremia is due to UTI without sepsis [ ] Bacteremia is not clinically significant [ ] Other, please specify [ ] Unable to determine (Template Last Revised: June 2020) MTDD
--- NOTE | 2021-12-03 10:53 | CDI ---
Documentation Clarification Form Date: 12/03/2021 10:34:55 AM From: Marion Fitch RN CCDS Admit Date: 11/30/2021 08:40:00 PM Patient Name: Brenda Carlson Visit Number: [id number] Discharge Date: ATTENTION: The Clinical Documentation Specialists (CDI) and [facility] Coding Staff appreciate your assistance in clarifying documentation. Please respond to the clarification below the line at the bottom and electronically sign. The CDI & [facility] Coding staff will review the response and follow-up if needed. Please note: Queries are made part of the Legal Health Record. If you have any questions, please contact the author of this message via ITS. Dr. Peterson sen, 1 pressure ulcer is documented by Nursing in the Pressure Injury Assessment, 12/01. Based on this information and the findings below, is there an additional diagnosis that is clinically appropriate for this patient? History/Risk Factors: 76-year-old female presents to the ED with generalized weakness was found by family in a chair with urinary and fecal incontinence. Profoundly weak and could not ambulate. Medical History: HTN and Daily Alcohol use. ED Note, 11/30. Clinical Indicators: ED Note, 11/30: She does complain of pain to her buttock area she does have evidence of decubitus ulceration to the coccyx area per parents. Location: Coccyx Wound description: Stage 1 Treatment: Absorbent under pad , Barrier protection; Dimethicone cloth; Zinc paste and Turn Q Two Hours when in bed. Is there an additional diagnosis that is clinically appropriate for this patient? [ x ] Coccyx Pressure Ulcer Stage 1 [ ] Other condition, please specify [ ] Unable to determine Clinical Definitions: Stage 1 Pressure Ulcer: intact skin, non-blanching redness of local area Stage 2 Pressure Ulcer: Partial thickness, loss of dermis, pink wound bed Stage 3 Pressure Ulcer: Full thickness tissue loss Stage 4 Pressure Ulcer: Full thickness tissue loss with exposed bone, tendon, or muscle. Unstageable pressure ulcer: Full thickness tissue loss in which the base of the ulcer is covered by slough (yellow, doss, deng, green or brown) and/or eschar (doss, brown or black) in the wound bed. (Template Last Revised: June 2020) MTDD
[2021-12-03 10:55] LABS: African American GFR (CKD) 86.3 (60.0-200.0); Anion Gap 7.9 mmol/L (10.00-18.00); BUN/Creat Ratio 14.51 Ratio (12.00-20.00); Blood Urea Nitrogen 11.3 mg/dL (9.0-27.0); Carbon Dioxide 24.4 mmol/L (20.0-27.5); Non-African American GFR(CKD) 74.5 (60.0-200.0); Potassium 3.9 mmol/L (3.5-5.5)
--- NOTE | 2021-12-04 01:27 | P.PN ---
Subjective Progress Note Date: 12/03/21 Patient is an 76-year-old female came in with complains of generalized weakness and confusion. Patient denied any symptoms of urinary tract infection at this time but patient has significant abnormal urine and was started on antibiotics for urinary tract infection any other. Patient had urinary and fecal incontinence although no evidence of seizures was documented and reported by the family no tongue biting at this time patient also has significant alcoholism history presently not having any withdrawals patient is alert oriented 3 at this time patient says his last her last drink was 2 days ago patient was complaining of buttock pain apparently yesterday where she didn't have any decubitus ulceration patient denied any systemic symptoms to me patient has some vague abdominal pain in the epigastric area. Patient does have a smoking history, smokes about a pack per day 12/02/2021 Patient seen and evaluated in follow-up this morning lethargic although arousable alert and oriented. Patient is maintained on IV antibiotics with infectious disease following and preliminary culture showing gram-negative bacilli and antibiotics being transitioned to meropenem as blood cultures are positive for gram-negative bacilli and some showing E. coli and will need to continue with daily blood cultures to monitor for clearance of bacteremia. Patient is afebrile and denies chest pain or shortness of breath. Patient reports she is eating although not very much as she does not have much of an a ppetite. Patient is not up and walking and is weak and will have physical therapy work with the patient. Case management also following as patient will need ECF on discharge. Vital signs are currently stable and patient is afebrile. 12/03/2021 Patient is seen today and is asleep but arousable. Patient continues on IV antibiotics with ID following and blood cultures showing ecoli with ESBL and u rine culture showing Kluyvera ascorbata and ecoli. Most recent repeat blood cultures have been negative for 24 hours. PT/OT following and planning on ecf at [facility]. Sodium is low at 129 most likely due to hypovolemia and also poor oral intake. Encouraged oral intake and supplements. Will discuss with ID about discharge planning and if requiring IV abx on discharge. Patient continues to pull IV out and needs redirection. Patient is afebrile. No reported chest pain or shortness of breath. WBC is trending down and will repeat am labs. Review of systems: Constitutional: reports of fatigue and feeling cold, fever, or chills Cardiovascular: No reports of chest pain or palpitations Respiratory: No reports of shortness of breath or cough GI: No reports of nausea, vomiting, or diarrhea, reports to some abdominal pain, did have a bowel movement today : No reports of dysuria or retention Neurovascular: reports of weakness All medications have been reviewed PHYSICAL EXAMINATION: GENERAL: The patient is alert and oriented x2, asleep although easily arousable ill-appearing, thin built, cachectic HEENT: Pupils are round and equally reacting to light. EOMI. No scleral icterus. No conjunctival pallor. Normocephalic, atraumatic. No pharyngeal erythema. No thyromegaly. CARDIOVASCULAR: S1 and S2 present. No murmurs, rubs, or gallops. PULMONARY: Chest is clear to auscultation, no wheezing or crackles. ABDOMEN: Soft, thin, scaphoid mildly tender on left lower quadrant, nondist ended, normoactive bowel sounds. No palpable organomegaly. MUSCULOSKELETAL: No joint swelling or deformity. EXTREMITIES: No cyanosis, clubbing, or pedal edema. muscle wasting noted NEUROLOGICAL: Gross neurological examination did not reveal any focal deficits. Diffusely weak SKIN: No rashes. Assessment: -Acute urinary tract infection, present on admission with bacteremia showing E. coli -bacteremia most likely secondary to complicated UTI, ruled out sepsis -pressure injury stage 1 coccyx/ sacral region, present on admission -Hypovolemic hyponatremia secondary to alcoholism and dehydration, possibly due to poor oral intake, solute -moderated protein calorie malnutrition with a bmi of 20.5 -Hypomagnesemia, replace per protocol -Hypertension history -Continued ongoing alcohol abuse , monitor for any withdrawal signs although not actively withdrawing at this time -Nicotine use: Counseling was provided -Generalized weakness related to chronic alcoholism and may be a component of UTI that may have contributed to her weakness. 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 Recent repeat blood cul tures have been negative for 24 hours Recommend PT/OT daily as patient is weak and debilitated mostly bed bound, will require ECF Recommend monitoring for any alcohol withdrawal and will use CIWA protocol as needed Recommend follow-up labs in the a.m. and repeat blood cultures daily to monitor for clearance of bacteremia Case management is following and working on possible ECF at [facility] The impression and plan of care has been dictated by Noelle Carlson, Nurse Practitioner as directed. Dr. Jodi MD I have performed a history and examination and MDM of this patient, discussed the same with the dictator, and agree with the dictator's assessment and plan as written ,documented as a scribe. Based on total visit time, I have performed more than 50% of the visit. Objective - Vital Signs Vital signs: Vital Signs Temp 98.3 F 12/03/21 19:03 Pulse 86 12/03/21 19:03 Resp 17 12/03/21 19:03 BP 112/59 12/03/21 19:03 Pulse Ox 96 12/03/21 19:03 FiO2 Intake & Output 12/03/21 12/03/21 12/04/21 06:59 18:59 06:59 Intake Total 590 Balance 590 Intake: Oral 590 Other: Voiding Method External Catheter External Catheter # Voids 8 # Bowel Movements 1 - Labs CBC & Chem 7: 12/03/21 08:04 12/03/21 08:04 Labs: Abnormal Lab Results - Last 24 Hours (Table) 12/03/21 12/03/21 Range/Units 08:04 08:04 WBC 10.14 H (4.50-10.00) X 10*3/uL RBC 5.56 H (4.10-5.20) X 10*6/uL Hgb 16.4 H (12.0-15.0) g/dL Hct 48.5 H (37.2-46.3) % RDW 15.0 H (11.5-14.5) % Sodium 129 L (135-145) mmol/L Anion Gap 7.90 L (10.00-18.00) mmol/L Calcium 8.0 L (8.7-10.3) mg/dL Microbiology - Last 24 Hours (Table) 11/30/21 16:47 Urine Culture - Final Urine,Clean Catch Kluyvera ascorbata Escherichia coli 12/02/21 11:46 Blood Culture - Preliminary Blood No Growth after 24 hours 11/30/21 20:17 Blood Culture Gram Stain - Final Blood Blood Culture - Preliminary Escherichia coli 11/30/21 20:17 Blood Culture Gram Stain - Final Blood Blood Culture - Final Escherichia coli
[2021-12-04] MEDS: MEROPENEM 1 GM in SODIUM CHLORIDE 0.9% 100 ML IVPB SCH ×4 (01:58→21:49)
[2021-12-04] MEDS: SODIUM CHLORIDE 0.9% 1,000 ML IV SCH ×3 (01:59→21:50)
[2021-12-04 08:55] LABS: Basophils # (A) 0.1 k/uL (0-0.2); Basophils % (A) 1 %; Eosinophils # (A) 0.3 k/uL (0-0.7); Eosinophils % (A) 3 %; HCT 52.6 % (34.0-46.0); HGB 16.5 gm/dL (11.4-16.0); Hypochromasia Slight; Lymphocytes # (A) 0.5 k/uL (1.0-4.8); Lymphocytes % (A) 5 %; MCH 30.2 pg (25.0-35.0); MCHC 31.4 g/dL (31.0-37.0); MCV 96.2 fL (80.0-100.0); Mean Platelet Volume 8.1; Monocytes # (A) 0.7 k/uL (0-1.0); Monocytes % (A) 6 %; Neutrophils # (A) 9.3 k/uL (1.3-7.7); Neutrophils % (A) 84 %; Platelet Count 195 k/uL (150-450); RBC 5.47 m/uL (3.80-5.40); RDW 14.4 % (11.5-15.5); WBC 11.1 k/uL (3.8-10.6)
[2021-12-04] MEDS: ENOXAPARIN 40 MG/0.4 ML SYRINGE SQ SCH (09:02)
[2021-12-04] MEDS: carvediloL 6.25 MG TAB PO SCH ×2 (09:02→17:26)
[2021-12-04] MEDS: PANTOPRAZOLE 40 MG/10 ML VIAL IV SCH (09:02)
[2021-12-04 09:19] LABS: African American GFR (CKD) >90 (>60 ml/min/1.73 sqM); Anion Gap 5 mmol/L; Blood Urea Nitrogen 8 mg/dL (7-17); Calcium 7.8 mg/dL (8.4-10.2); Carbon Dioxide 23 mmol/L (22-30); Chloride 100 mmol/L (98-107); Glucose 110 mg/dL (74-99); Magnesium 1.5 mg/dL (1.6-2.3); Non-African American GFR(CKD) 78 (>60 ml/min/1.73 sqM); Potassium 3.4 mmol/L (3.5-5.1); Sodium 128 mmol/L (137-145)
--- NOTE | 2021-12-04 15:54 | P.PN ---
Subjective Progress Note Date: 12/03/21 Principal diagnosis: ESBL E. coli UTI and bacteremia Patient is a 76-year-old female with a past medical history significant for COPD presenting to the hospital 2 days ago via EMS for evaluation of generalized weakness, Patient noticed to have evidence of urinary tract infection and gram-negative bacteremia. On today's evaluation that is 12/03/2021, the patient is afebrile, the patient is breathing comfortably on room air, denies having any chest pain did have some cough not bringing up any sputum and no abdominal pain no diarrhea Objective - Vital Signs Vital signs: Vital Signs Temp 98.1 F 12/03/21 02:00 Pulse 67 12/03/21 09:28 Resp 15 12/03/21 09:28 BP 113/67 12/03/21 02:00 Pulse Ox 93 L 12/03/21 02:00 FiO2 Intake & Output 12/02/21 12/03/21 12/03/21 18:59 06:59 18:59 Intake Total 550 590 Balance 550 590 Intake: Intake, IV Titration 550 Amount Meropenem 1 gm In Sodium 100 Chloride 0.9% 100 ml @ 33 .3 mls/hr IVPB Q8HR TJ Rx#:[id number] Sodium Chloride 0.9% 1, 450 000 ml @ 75 mls/hr IV . [id number] TJ Rx#:[id number] Oral 590 Other: Voiding Method External Catheter External Catheter External Catheter # Voids 8 8 # Bowel Movements 1 - Exam GENERAL DESCRIPTION: An elderly female lying in bed in no distress RESPIRATORY SYSTEM: Unlabored breathing , decreased breath sounds at bases HEART: S1 S2 regular rate and rhythm , ABDOMEN: Soft , no tenderness EXTREMITIES: No edema feet - Labs CBC & Chem 7: 12/04/21 08:27 12/04/21 08:27 Labs: Abnormal Lab Results - Last 24 Hours (Table) 12/03/21 12/03/21 Range/Units 08:04 08:04 WBC 10.14 H (4.50-10.00) X 10*3/uL RBC 5.56 H (4.10-5.20) X 10*6/uL Hgb 16.4 H (12.0-15.0) g/dL Hct 48.5 H (37.2-46.3) % RDW 15.0 H (11.5-14.5) % Sodium 129 L (135-145) mmol/L Anion Gap 7.90 L (10.00-18.00) mmol/L Calcium 8.0 L (8.7-10.3) mg/dL Microbiology - Last 24 Hours (Table) 12/02/21 11:46 Blood Culture - Preliminary Blood No Growth after 24 hours 11/30/21 20:17 Blood Culture Gram Stain - Final Blood Blood Culture - Preliminary Escherichia coli 11/30/21 20:17 Blood Culture Gram Stain - Final Blood Blood Culture - Final Escherichia coli 11/30/21 16:47 Urine Culture - Preliminary Urine,Clean Catch Gram Neg Bacilli Assessment and Plan (1) Urinary tract infection Current Visit: Yes Status: Acute Code(s): N39.0 - URINARY TRACT INFECTION, SITE NOT SPECIFIED SNOMED Code(s): 64503713 Plan: 1patient presented to hospital with generalized weakness no energy in this patient did have a significant elevated white count positive UA high clinical suspicion for symptomatic urinary tract infection likely complicated as the patient did have evidence of bacteremia likely secondary to urinary source. 2patient to continue meropenem 1 g every 8 hours waiting for the culture to finalize. 3 obtain ultrasound kidney and bladder was negative for any nephrolithiasis or hydronephrosis Time with Patient: Less than 30
--- NOTE | 2021-12-04 15:56 | P.PN ---
Subjective Progress Note Date: 12/04/21 Principal diagnosis: ESBL E. coli UTI and bacteremia Patient is a 76-year-old female with a past medical history significant for COPD presenting to the hospital 2 days ago via EMS for evaluation of generalized weakness, Patient noticed to have evidence of urinary tract infection and gram-negative bacteremia. On today's evaluation that is 12/04/2021, the patient remains to be afebrile, the patient is breathing comfortably on room air, the patient denies having any chest pain did have some cough not bringing up any sputum the patient denies abdominal pain no diarrhea Objective - Vital Signs Vital signs: Vital Signs Temp 98.2 F 12/04/21 14:00 Pulse 79 12/04/21 14:00 Resp 17 12/04/21 14:00 BP 108/75 12/04/21 14:00 Pulse Ox 96 12/04/21 14:00 FiO2 Intake & Output 12/03/21 12/04/21 12/04/21 18:59 06:59 18:59 Output Total 200 Balance -200 Output: Urine 200 Other: Voiding Method External Catheter External Catheter External Catheter # Voids 8 # Bowel Movements 1 - Exam GENERAL DESCRIPTION: An elderly female lying in bed in no distress RESPIRATORY SYSTEM: Unlabored breathing , decreased breath sounds at bases HEART: S1 S2 regular rate and rhythm , ABDOMEN: Soft , no tenderness EXTREMITIES: No edema feet - Labs CBC & Chem 7: 12/04/21 08:27 12/04/21 08:27 Labs: Abnormal Lab Results - Last 24 Hours (Table) 12/04/21 12/04/21 Range/Units 08:27 08:27 WBC 11.1 H (3.8-10.6) k/uL RBC 5.47 H (3.80-5.40) m/uL Hgb 16.5 H (11.4-16.0) gm/dL Hct 52.6 H (34.0-46.0) % Neutrophils # 9.3 H (1.3-7.7) k/uL Lymphocytes # 0.5 L (1.0-4.8) k/uL Sodium 128 L (137-145) mmol/L Potassium 3.4 L (3.5-5.1) mmol/L Glucose 110 H (74-99) mg/dL Calcium 7.8 L (8.4-10.2) mg/dL Magnesium 1.5 L (1.6-2.3) mg/dL Microbiology - Last 24 Hours (Table) 12/02/21 11:46 Blood Culture - Preliminary Blood No Growth after 48 hours 12/03/21 08:04 Blood Culture - Preliminary Blood No Growth after 24 hours 11/30/21 16:47 Urine Culture - Final Urine,Clean Catch Kluyvera ascorbata Escherichia coli 11/30/21 20:17 Blood Culture Gram Stain - Final Blood Blood Culture - Preliminary Escherichia coli 11/30/21 20:17 Blood Culture Gram Stain - Final Blood Blood Culture - Final Escherichia coli Assessment and Plan (1) Urinary tract infection Current Visit: Yes Status: Acute Code(s): N39.0 - URINARY TRACT INFECTION, SITE NOT SPECIFIED SNOMED Code(s): 37894891 Plan: 1patient presented to hospital with generalized weakness no energy in this patient did have a significant elevated white count positive UA high clinical suspicion for symptomatic urinary tract infection likely complicated as the patient did have evidence of bacteremia likely secondary to urinary source. 2 ultrasound kidney and bladder was negative for any nephrolithiasis or hydronephrosis 3-blood and urine has been finalized with ESBL E. coli repeat blood culture had been negative patient is currently covered with meropenem she will need a midline and will finish therapy with IV Invanz total duration of antibiotic will be 2 weeks Time with Patient: Less than 30
--- NOTE | 2021-12-04 18:02 | P.PN ---
Subjective Progress Note Date: 12/04/21 76-year-old female came in with complains of generalized weakness and confusion. Patient denied any symptoms of urinary tract infection at this time but patient has significant abnormal urine and was started on antibiotics for urinary tract infection any other. Patient had urinary and fecal incontinence although no evidence of seizures was documented and reported by the family no tongue biting at this time patient also has significant alcoholism history presently not having any withdrawals patient is alert oriented 3 at this time patient says his last her last drink was 2 days ago patient was complaining of buttock pain apparently yesterday where she didn't have any decubitus ulceration patient denied any systemic symptoms to me patient has some vague abdominal pain in the epigastric area. Patient does have a smoking history, smokes about a pack per day Objective - Vital Signs Vital signs: Vital Signs Temp 97.7 F 12/04/21 08:00 Pulse 97 12/04/21 08:00 Resp 17 12/04/21 08:00 BP 170/100 12/04/21 08:00 Pulse Ox 95 12/04/21 08:00 FiO2 Intake & Output 12/03/21 12/04/21 12/04/21 18:59 06:59 18:59 Output Total 200 Balance -200 Output: Urine 200 Other: Voiding Method External Catheter External Catheter # Voids 8 # Bowel Movements 1 - Exam GENERAL: The patient is alert and oriented x2, asleep although easily arousable ill-appearing, thin built, cachectic HEENT: Pupils are round and equally reacting to light. EOMI. No scleral icterus. No conjunctival pallor. Normocephalic, atraumatic. No pharyngeal erythema. No thyromegaly. CARDIOVASCULAR: S1 and S2 present. No murmurs, rubs, or gallops. PULMONARY: Chest is clear to auscultation, no wheezing or crackles. ABDOMEN: Soft, thin, scaphoid mildly tender on left lower quadrant, nondistended, normoactive bowel sounds. No palpable organomegaly. MUSCULOSKELETAL: No joint swelling or deformity. EXTREMITIES: No cyanosis, clubbing, or pedal edema. muscle wasting noted NEUROLOGICAL: Gross neurological examination did not reveal any focal deficits. Diffusely weak SKIN: No rashes. - Labs CBC & Chem 7: 12/04/21 08:27 12/04/21 08:27 Labs: Abnormal Lab Results - Last 24 Hours (Table) 12/04/21 12/04/21 Range/Units 08:27 08:27 WBC 11.1 H (3.8-10.6) k/uL RBC 5.47 H (3.80-5.40) m/uL Hgb 16.5 H (11.4-16.0) gm/dL Hct 52.6 H (34.0-46.0) % Neutrophils # 9.3 H (1.3-7.7) k/uL Lymphocytes # 0.5 L (1.0-4.8) k/uL Sodium 128 L (137-145) mmol/L Potassium 3.4 L (3.5-5.1) mmol/L Glucose 110 H (74-99) mg/dL Calcium 7.8 L (8.4-10.2) mg/dL Magnesium 1.5 L (1.6-2.3) mg/dL Microbiology - Last 24 Hours (Table) 12/03/21 08:04 Blood Culture - Preliminary Blood No Growth after 24 hours 11/30/21 16:47 Urine Culture - Final Urine,Clean Catch Kluyvera ascorbata Escherichia coli 12/02/21 11:46 Blood Culture - Preliminary Blood No Growth after 24 hours 11/30/21 20:17 Blood Culture Gram Stain - Final Blood Blood Culture - Preliminary Escherichia coli 11/30/21 20:17 Blood Culture Gram Stain - Final Blood Blood Culture - Final Escherichia coli Assessment and Plan Assessment: -Acute urinary tract infection, present on admission with bacteremia showing E. coli -bacteremia most likely secondary to complicated UTI, ruled out sepsis -pressure injury stage 1 coccyx/ sacral region, present on admission -Hypovolemic hyponatremia secondary to alcoholism and dehydration, possibly due to poor oral intake, solute -moderated protein calorie malnutrition with a bmi of 20.5 -Hypomagnesemia, replace per protocol -Hypertension history -Continued ongoing alcohol abuse , monitor for any withdrawal signs although not actively withdrawing at this time -Nicotine use: Counseling was provided -Generalized weakness related to chronic alcoholism and may be a component of UTI that may have contributed to her weakness. 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 Recent repeat blood cultures have been negative for 24 hours Recommend PT/OT daily as patient is weak and debilitated mostly bed bound, will require ECF Recommend monitoring for any alcohol withdrawal and will use [facility] protocol as needed Recommend follow-up labs in the a.m. and repeat blood cultures daily to monitor for clearance of bacteremia Case management is following and working on possible ECF at [facility]
[2021-12-04] MEDS: MEGESTROL 40 MG TAB PO SCH (21:50)
[2021-12-05] MEDS: ENOXAPARIN 40 MG/0.4 ML SYRINGE SQ SCH (08:22)
[2021-12-05] MEDS: MEROPENEM 1 GM in SODIUM CHLORIDE 0.9% 100 ML IVPB SCH ×2 (08:22→16:36)
[2021-12-05] MEDS: carvediloL 6.25 MG TAB PO SCH ×2 (08:23→17:59)
[2021-12-05] MEDS: PANTOPRAZOLE 40 MG/10 ML VIAL IV SCH (08:23)
[2021-12-05] MEDS: MEGESTROL 40 MG TAB PO SCH (08:23)
[2021-12-05 12:04] LABS: Basophils # (A) 0.09 X 10*3/uL (0.00-0.10); Basophils % (A) 0.8 %; Eosinophils # (A) 0.25 X 10*3/uL (0.04-0.35); Eosinophils % (A) 2.1 %; HCT 45.7 % (37.2-46.3); HGB 15.6 g/dL (12.0-15.0); Immature Grans, Automated 2.3 %; Lymphocytes # (A) 0.78 X 10*3/uL (0.90-5.00); Lymphocytes % (A) 6.6 %; MCH 29.4 pg (27.0-32.0); MCHC 34.1 g/dL (32.0-37.0); MCV 86.2 fL (80.0-97.0); Mean Platelet Volume 10.7 fL (9.5-12.2); Monocytes # (A) 0.76 X 10*3/uL (0.20-1.00); Monocytes % (A) 6.4 %; NRBC Per 100 WBC 0 /100 WBCS (0.0-0.0); Neutrophils # (A) 9.66 X 10*3/uL (1.80-7.70); Neutrophils % (A) 81.8 %; Platelet Count 233 X 10*3/uL (140-440); RDW 14.9 % (11.5-14.5); WBC 11.81 X 10*3/uL (4.50-10.00)
[2021-12-05 12:26] LABS: African American GFR (CKD) 103.3 (60.0-200.0); Anion Gap 9.9 mmol/L (10.00-18.00); BUN/Creat Ratio 12.67 Ratio (12.00-20.00); Blood Urea Nitrogen 7.6 mg/dL (9.0-27.0); Calcium 7.8 mg/dL (8.7-10.3); Carbon Dioxide 22.1 mmol/L (20.0-27.5); Non-African American GFR(CKD) 89.2 (60.0-200.0); Potassium 3.5 mmol/L (3.5-5.5)
[2021-12-05] MEDS: SODIUM CHLORIDE 0.9% 1,000 ML IV SCH (16:36)
--- NOTE | 2021-12-05 18:32 | P.PN ---
Subjective Progress Note Date: 12/05/21 Principal diagnosis: Acute urinary tract infection, present on admission with bacteremia showing E. coli Bacteremia most likely secondary to complicated UTI, ruled out sepsis Pressure injury stage 1 coccyx/ sacral region, present on admission Hypovolemic hyponatremia secondary to alcoholism and dehydration, possibly due to poor oral intake, solute Moderated protein calorie malnutrition with a bmi of 20.5 76-year-old female came in with complains of generalized weakness and confusion. Patient denied any symptoms of urinary tract infection at this time but patient has significant abnormal urine and was started on antibiotics for urinary tract infection any other. Patient had urinary and fecal incontinence although no evidence of seizures was documented and reported by the family no tongue biting at this time patient also has significant alcoholism history presently not having any withdrawals patient is alert oriented 3 at this time patient says his last her last drink was 2 days ago patient was complaining of buttock pain apparently yesterday where she didn't have any decubitus ulceration patient denied any systemic symptoms to me patient has some vague abdominal pain in the epigastric area. Patient does have a smoking history, smokes about a pack per day 12/05/2021 Patient is seen and evaluated in room at bedside; the patient remains to be afebrile, the patient is breathing comfortably on room air, the patient denies having any chest pain did have some cough not bringing up any sputum the patient denies abdominal pain no diarrhea patient presented to hospital with generalized weakness no energy in this patient did have a significant elevated white count positive UA high clinical suspicion for symptomatic urinary tract infection likely complicated as the patient did have evidence of bacteremia likely secondary to urinary source. ultrasound kidney and bladder was negative for any nephrolithiasis or hydronephrosis blood and urine has been finalized with ESBL E. coli repeat blood culture had b een negative patient is currently covered with meropenem she will need a midline and will finish therapy with IV Invanz total duration of antibiotic will be 2 weeks Objective - Vital Signs Vital signs: Vital Signs Temp 99.0 F 12/05/21 08:00 Pulse 76 12/05/21 08:00 Resp 16 12/05/21 08:00 BP 117/68 12/05/21 08:00 Pulse Ox 93 L 12/05/21 08:00 FiO2 Intake & Output 12/04/21 12/05/21 12/05/21 18:59 06:59 18:59 Intake Total 1125 Output Total 800 400 Balance 325 -400 Intake: Intake, IV Titration 1125 Amount Meropenem 1 gm In Sodium 200 Chloride 0.9% 100 ml @ 33 .3 mls/hr IVPB Q8HR [facility] Rx#:[id number] Sodium Chloride 0.9% 1, 925 000 ml @ 75 mls/hr IV . [id number] [facility] Rx#:[id number] Output: Urine 800 400 Other: Voiding Method External Catheter External Catheter External Catheter # Bowel Movements 3 3 - Exam GENERAL: The patient is alert and oriented x2, asleep although easily arousable ill-appearing, thin built, cachectic HEENT: Pupils are round and equally reacting to light. EOMI. No scleral icterus. No conjunctival pallor. Normocephalic, atraumatic. No pharyngeal erythema. No thyromegaly. CARDIOVASCULAR: S1 and S2 present. No murmurs, rubs, or gallops. PULMONARY: Chest is clear to auscultation, no wheezing or crackles. ABDOMEN: Soft, thin, scaphoid mildly tender on left lower quadrant, nondistended, normoactive bowel sounds. No palpable organomegaly. MUSCULOSKELETAL: No joint swelling or deformity. EXTREMITIES: No cyanosis, clubbing, or pedal edema. muscle wasting noted NEUROLOGICAL: Gross neurological examination did not reveal any focal deficits. Diffusely weak SKIN: No rashes. - Labs CBC & Chem 7: 12/05/21 07:17 12/05/21 07:17 Labs: Abnormal Lab Results - Last 24 Hours (Table) 12/05/21 Range/Units 07:17 WBC 11.81 H (4.50-10.00) X 10*3/uL RBC 5.30 H (4.10-5.20) X 10*6/uL Hgb 15.6 H (12.0-15.0) g/dL RDW 14.9 H (11.5-14.5) % Immature Gran # 0.27 H (0.00-0.04) X 10*3/uL Neutrophils # 9.66 H (1.80-7.70) X 10*3/uL Lymphocytes # 0.78 L (0.90-5.00) X 10*3/uL Microbiology - Last 24 Hours (Table) 12/03/21 08:04 Blood Culture - Preliminary Blood No Growth after 48 hours 12/02/21 11:46 Blood Culture - Preliminary Blood No Growth after 48 hours Assessment and Plan Assessment: -Acute urinary tract infection, present on admission with bacteremia showing E. coli -bacteremia most likely secondary to complicated UTI, ruled out sepsis -pressure injury stage 1 coccyx/ sacral region, present on admission -Hypovolemic hyponatremia secondary to alcoholism and dehydration, possibly due to poor oral intake, solute -moderated protein calorie malnutrition with a bmi of 20.5 -Hypomagnesemia, replace per protocol -Hypertension history -Continued ongoing alcohol abuse , monitor for any withdrawal signs although not actively withdrawing at this time -Nicotine use: Counseling was provided -Generalized weakness related to chronic alcoholism and may be a component of UTI that may have contributed to her weakness. 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 Recent repeat blood cultures have been negative for 24 hours Recommend PT/OT daily as patient is weak and debilitated mostly bed bound, will require ECF Recommend monitoring for any alcohol withdrawal and will use [facility] protocol as needed Recommend follow-up labs in the a.m. and repeat blood cultures daily to monitor for clearance of bacteremia Case management is following and working on possible ECF at [facility]
--- NOTE | 2021-12-05 20:05 | P.PN ---
Subjective Progress Note Date: 12/05/21 Principal diagnosis: ESBL E. coli UTI and bacteremia Patient is a 76-year-old female with a past medical history significant for COPD presenting to the hospital 2 days ago via EMS for evaluation of generalized weakness, Patient noticed to have evidence of urinary tract infection and gram-negative bacteremia. On today's evaluation that is , the patient continuous to be afebrile, the patient is breathing comfortably on room air, the patient denies having any chest pain shortness of breath or cough, the patient denies any abdominal pain no diarrhea Objective - Vital Signs Vital signs: Vital Signs Temp 99.0 F 12/05/21 08:00 Pulse 76 12/05/21 08:00 Resp 16 12/05/21 08:00 BP 117/68 12/05/21 08:00 Pulse Ox 93 L 12/05/21 08:00 FiO2 Intake & Output 12/04/21 12/05/21 12/05/21 18:59 06:59 18:59 Intake Total 1125 Output Total 800 400 Balance 325 -400 Intake: Intake, IV Titration 1125 Amount Meropenem 1 gm In Sodium 200 Chloride 0.9% 100 ml @ 33 .3 mls/hr IVPB Q8HR [facility] Rx#:[id number] Sodium Chloride 0.9% 1, 925 000 ml @ 75 mls/hr IV . [id number] [facility] Rx#:[id number] Output: Urine 800 400 Other: Voiding Method External Catheter External Catheter External Catheter # Bowel Movements 3 3 - Exam GENERAL DESCRIPTION: An elderly female lying in bed in no distress RESPIRATORY SYSTEM: Unlabored breathing , decreased breath sounds at bases HEART: S1 S2 regular rate and rhythm , ABDOMEN: Soft , no tenderness EXTREMITIES: No edema feet - Labs CBC & Chem 7: 12/05/21 07:17 12/05/21 07:17 Labs: Abnormal Lab Results - Last 24 Hours (Table) 12/05/21 12/05/21 Range/Units 07:17 07:17 WBC 11.81 H (4.50-10.00) X 10*3/uL RBC 5.30 H (4.10-5.20) X 10*6/uL Hgb 15.6 H (12.0-15.0) g/dL RDW 14.9 H (11.5-14.5) % Immature Gran # 0.27 H (0.00-0.04) X 10*3/uL Neutrophils # 9.66 H (1.80-7.70) X 10*3/uL Lymphocytes # 0.78 L (0.90-5.00) X 10*3/uL Sodium 133 L (135-145) mmol/L Anion Gap 9.90 L (10.00-18.00) mmol/L BUN 7.6 L (9.0-27.0) mg/dL Calcium 7.8 L (8.7-10.3) mg/dL Microbiology - Last 24 Hours (Table) 12/03/21 08:04 Blood Culture - Preliminary Blood No Growth after 48 hours 12/02/21 11:46 Blood Culture - Preliminary Blood No Growth after 48 hours Assessment and Plan (1) Urinary tract infection Current Visit: Yes Status: Acute Code(s): N39.0 - URINARY TRACT INFECTION, SITE NOT SPECIFIED SNOMED Code(s): 91684970 Plan: 1patient presented to hospital with generalized weakness no energy in this patient did have a significant elevated white count positive UA high clinical suspicion for symptomatic urinary tract infection likely complicated as the patient did have evidence of bacteremia likely secondary to urinary source. 2 ultrasound kidney and bladder was negative for any nephrolithiasis or hydronephrosis 3-blood and urine has been finalized with ESBL E. coli repeat blood culture had been negative 4- patient has shown clinical improvement and will continue with meropenem she will need a midline and will finish therapy with IV Invanz total duration of antibiotic will be 2 weeks Time with Patient: Less than 30
[2021-12-05] MEDS: ALBUTEROL NEBULIZED 2.5 MG/3 ML INHALATION PRN (21:45)
[2021-12-06] MEDS: MEROPENEM 1 GM in SODIUM CHLORIDE 0.9% 100 ML IVPB SCH ×3 (00:44→15:47)
[2021-12-06] MEDS: SODIUM CHLORIDE 0.9% 1,000 ML IV SCH ×2 (00:44→15:47)
[2021-12-06] MEDS: carvediloL 6.25 MG TAB PO SCH ×2 (07:41→17:31)
[2021-12-06] MEDS: ENOXAPARIN 40 MG/0.4 ML SYRINGE SQ SCH (07:41)
[2021-12-06] MEDS: MEGESTROL 40 MG TAB PO SCH (07:41)
[2021-12-06] MEDS: ALBUTEROL NEBULIZED 2.5 MG/3 ML INHALATION PRN (08:22)
[2021-12-06] MEDS: PANTOPRAZOLE 40 MG/10 ML VIAL IV SCH (10:56)
[2021-12-06 11:52] LABS: Basophils # (A) 0.08 X 10*3/uL (0.00-0.10); Basophils % (A) 0.6 %; Eosinophils # (A) 0.31 X 10*3/uL (0.04-0.35); Eosinophils % (A) 2.3 %; HCT 49.5 % (37.2-46.3); HGB 16.6 g/dL (12.0-15.0); Immature Grans, Automated 1.7 %; Lymphocytes # (A) 1.55 X 10*3/uL (0.90-5.00); Lymphocytes % (A) 11.7 %; MCHC 33.5 g/dL (32.0-37.0); MCV 86.5 fL (80.0-97.0); Mean Platelet Volume 10.6 fL (9.5-12.2); Monocytes # (A) 0.93 X 10*3/uL (0.20-1.00); NRBC Per 100 WBC 0 /100 WBCS (0.0-0.0); Neutrophils # (A) 10.18 X 10*3/uL (1.80-7.70); Neutrophils % (A) 76.7 %; Platelet Count 280 X 10*3/uL (140-440); RBC 5.72 X 10*6/uL (4.10-5.20); RDW 15.6 % (11.5-14.5); WBC 13.27 X 10*3/uL (4.50-10.00)
[2021-12-06 13:20] LABS: African American GFR (CKD) 95.4 (60.0-200.0); Anion Gap 9.9 mmol/L (10.00-18.00); BUN/Creat Ratio 10.86 Ratio (12.00-20.00); Blood Urea Nitrogen 7.8 mg/dL (9.0-27.0); Carbon Dioxide 20.7 mmol/L (20.0-27.5); Non-African American GFR(CKD) 82.3 (60.0-200.0); Potassium 3.7 mmol/L (3.5-5.5)
[2021-12-07] MEDS: MEROPENEM 1 GM in SODIUM CHLORIDE 0.9% 100 ML IVPB SCH ×3 (01:06→16:11)
[2021-12-07] MEDS: SODIUM CHLORIDE 0.9% 1,000 ML IV SCH (01:06)
[2021-12-07] MEDS: MEGESTROL 40 MG TAB PO SCH (07:30)
[2021-12-07] MEDS: carvediloL 6.25 MG TAB PO SCH ×2 (07:30→16:09)
[2021-12-07] MEDS: PANTOPRAZOLE 40 MG/10 ML VIAL IV SCH (07:31)
[2021-12-07] MEDS: ENOXAPARIN 40 MG/0.4 ML SYRINGE SQ SCH (07:31)
--- NOTE | 2021-12-07 08:02 | P.PN ---
Subjective Progress Note Date: 12/06/21 Principal diagnosis: ESBL E. coli UTI and bacteremia Patient is a 76-year-old female with a past medical history significant for COPD presenting to the hospital 2 days ago via EMS for evaluation of generalized weakness, Patient noticed to have evidence of urinary tract infection and gram-negative bacteremia. On today's evaluation that is 12/06/2021, the patient remains to be afebrile, the patient is breathing comfortably on room air, the patient denies chest pain shortness of breath or cough, the patient denies any abdominal pain no diarrhea, no new symptoms Objective - Vital Signs Vital signs: Vital Signs Temp 97.6 F 12/06/21 14:00 Pulse 75 12/06/21 14:00 Resp 16 12/06/21 14:00 BP 137/73 12/06/21 14:00 Pulse Ox 97 12/06/21 14:00 FiO2 Intake & Output 12/06/21 12/06/21 12/07/21 06:59 18:59 06:59 Intake Total 240 Output Total 500 Balance -260 Intake: Oral 240 Output: Urine 500 Other: Voiding Method External Catheter External Catheter - Exam GENERAL DESCRIPTION: An elderly female lying in bed in no distress RESPIRATORY SYSTEM: Unlabored breathing , decreased breath sounds at bases HEART: S1 S2 regular rate and rhythm , ABDOMEN: Soft , no tenderness EXTREMITIES: No edema feet - Labs CBC & Chem 7: 12/06/21 07:54 12/06/21 07:54 Labs: Abnormal Lab Results - Last 24 Hours (Table) 12/06/21 12/06/21 Range/Units 07:54 07:54 WBC 13.27 H (4.50-10.00) X 10*3/uL RBC 5.72 H (4.10-5.20) X 10*6/uL Hgb 16.6 H (12.0-15.0) g/dL Hct 49.5 H (37.2-46.3) % RDW 15.6 H (11.5-14.5) % Immature Gran # 0.22 H (0.00-0.04) X 10*3/uL Neutrophils # 10.18 H (1.80-7.70) X 10*3/uL Sodium 134 L (135-145) mmol/L Anion Gap 9.90 L (10.00-18.00) mmol/L BUN 7.8 L (9.0-27.0) mg/dL BUN/Creatinine Ratio 10.86 L (12.00-20.00) Ratio Calcium 8.0 L (8.7-10.3) mg/dL Microbiology - Last 24 Hours (Table) 12/02/21 11:46 Blood Culture - Preliminary Blood No Growth after 96 hours 12/03/21 08:04 Blood Culture - Preliminary Blood No Growth after 72 hours Assessment and Plan (1) Urinary tract infection Current Visit: Yes Status: Acute Code(s): N39.0 - URINARY TRACT INFECTION, SITE NOT SPECIFIED SNOMED Code(s): 53613111 Plan: 1patient presented to hospital with generalized weakness no energy in this patient did have a significant elevated white count positive UA high clinical suspicion for symptomatic urinary tract infection likely complicated as the patient did have evidence of bacteremia likely secondary to urinary source. 2 ultrasound kidney and bladder was negative for any nephrolithiasis or hydronephrosis 3-blood and urine has been finalized with ESBL E. coli repeat blood culture had been negative 4- patient has shown clinical improvement and and is currently being treated with meropenem plan is midline and will finish therapy with IV Invanz total duration of antibiotic will be 2 weeks Time with Patient: Less than 30
--- NOTE | 2021-12-07 12:01 | P.PN ---
Subjective Progress Note Date: 12/06/21 Principal diagnosis: Acute urinary tract infection, present on admission with bacteremia showing E. coli Bacteremia most likely secondary to complicated UTI, ruled out sepsis Pressure injury stage 1 coccyx/ sacral region, present on admission Hypovolemic hyponatremia secondary to alcoholism and dehydration, possibly due to poor oral intake, solute Moderated protein calorie malnutrition with a bmi of 20.5 76-year-old female came in with complains of generalized weakness and confusion. Patient denied any symptoms of urinary tract infection at this time but patient has significant abnormal urine and was started on antibiotics for urinary tract infection any other. Patient had urinary and fecal incontinence although no evidence of seizures was documented and reported by the family no tongue biting at this time patient also has significant alcoholism history presently not having any withdrawals patient is alert oriented 3 at this time patient says his last her last drink was 2 days ago patient was complaining of buttock pain apparently yesterday where she didn't have any decubitus ulceration patient denied any systemic symptoms to me patient has some vague abdominal pain in the epigastric area. Patient does have a smoking history, smokes about a pack per day 12/05/2021 Patient is seen and evaluated in room at bedside; the patient remains to be afebrile, the patient is breathing comfortably on room air, the patient denies having any chest pain did have some cough not bringing up any sputum the patient denies abdominal pain no diarrhea patient presented to hospital with generalized weakness no energy in this patient did have a significant elevated white count positive UA high clinical suspicion for symptomatic urinary tract infection likely complicated as the patient did have evidence of bacteremia likely secondary to urinary source. ultrasound kidney and bladder was negative for any nephrolithiasis or hydronephrosis blood and urine has been finalized with ESBL E. coli repeat blood culture had b een negative patient is currently covered with meropenem she will need a midline and will finish therapy with IV Invanz total duration of antibiotic will be 2 weeks 12/06/2021 --- patient presented to hospital with generalized weakness no energy in this patient did have a significant elevated white count positive UA high clinical suspicion for symptomatic urinary tract infection likely complicated as the patient did have evidence of bacteremia likely secondary to urinary source. -- ultrasound kidney and bladder was negative for any nephrolithiasis or hydronephrosis -blood and urine has been finalized with ESBL E. coli repeat blood culture had been negative -- patient has shown clinical improvement and will continue with meropenem she will need a midline and will finish therapy with IV Invanz total duration of antibiotic will be 2 weeks Objective - Vital Signs Vital signs: Vital Signs Temp 98.2 F 12/06/21 07:54 Pulse 73 12/06/21 07:54 Resp 18 12/06/21 07:54 BP 148/85 12/06/21 07:54 Pulse Ox 96 12/06/21 07:54 FiO2 Intake & Output 12/05/21 12/06/21 12/06/21 18:59 06:59 18:59 Intake Total 1025 120 Balance 1025 120 Intake: Intake, IV Titration 1025 Amount Meropenem 1 gm In Sodium 100 Chloride 0.9% 100 ml @ 33 .3 mls/hr IVPB Q8HR [facility] Rx#:[id number] Sodium Chloride 0.9% 1, 925 000 ml @ 75 mls/hr IV . [id number] [facility] Rx#:[id number] Oral 120 Other: Voiding Method External Catheter External Catheter - Exam GENERAL: The patient is alert and oriented x2, asleep although easily arousable ill-appearing, thin built, cachectic HEENT: Pupils are round and equally reacting to light. EOMI. No scleral icterus. No conjunctival pallor. Normocephalic, atraumatic. No pharyngeal erythema. No thyromegaly. CARDIOVASCULAR: S1 and S2 present. No murmurs, rubs, or gallops. PULMONARY: Chest is clear to auscultation, no wheezing or crackles. ABDOMEN: Soft, thin, scaphoid mildly tender on left lower quadrant, nondistended, normoactive bowel sounds. No palpable organomegaly. MUSCULOSKELETAL: No joint swelling or deformity. EXTREMITIES: No cyanosis, clubbing, or pedal edema. muscle wasting noted NEUROLOGICAL: Gross neurological examination did not reveal any focal deficits. Diffusely weak SKIN: No rashes. - Labs CBC & Chem 7: 12/06/21 07:54 12/06/21 07:54 Labs: Abnormal Lab Results - Last 24 Hours (Table) 12/05/21 12/06/21 Range/Units 07:17 07:54 WBC 13.27 H (4.50-10.00) X 10*3/uL RBC 5.72 H (4.10-5.20) X 10*6/uL Hgb 16.6 H (12.0-15.0) g/dL Hct 49.5 H (37.2-46.3) % RDW 15.6 H (11.5-14.5) % Immature Gran # 0.22 H (0.00-0.04) X 10*3/uL Neutrophils # 10.18 H (1.80-7.70) X 10*3/uL Sodium 133 L (135-145) mmol/L Anion Gap 9.90 L (10.00-18.00) mmol/L BUN 7.6 L (9.0-27.0) mg/dL Calcium 7.8 L (8.7-10.3) mg/dL Microbiology - Last 24 Hours (Table) 12/03/21 08:04 Blood Culture - Preliminary Blood No Growth after 72 hours 12/02/21 11:46 Blood Culture - Preliminary Blood No Growth after 72 hours Assessment and Plan Assessment: -Acute urinary tract infection, present on admission with bacteremia showing E. coli -bacteremia most likely secondary to complicated UTI, ruled out sepsis -pressure injury stage 1 coccyx/ sacral region, present on admission -Hypovolemic hyponatremia secondary to alcoholism and dehydration, possibly due to poor oral intake, solute -moderated protein calorie malnutrition with a bmi of 20.5 -Hypomagnesemia, replace per protocol -Hypertension history -Continued ongoing alcohol abuse , monitor for any withdrawal signs although not actively withdrawing at this time -Nicotine use: Counseling was provided -Generalized weakness related to chronic alcoholism and may be a component of UTI that may have contributed to her weakness. 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 Recent repeat blood cultures have been negative for 24 hours Recommend PT/OT daily as patient is weak and debilitated mostly bed bound, will require ECF Recommend monitoring for any alcohol withdrawal and will use [facility] protocol as needed Recommend follow-up labs in the a.m. and repeat blood cultures daily to monitor for clearance of bacteremia Case management is following and working on possible ECF at [facility]
[2021-12-07 14:30] VITALS: BMI 20.5
--- NOTE | 2021-12-07 15:07 | P.PN ---
Subjective Progress Note Date: 12/07/21 Principal diagnosis: Acute urinary tract infection, present on admission with bacteremia showing E. coli Bacteremia most likely secondary to complicated UTI, ruled out sepsis Pressure injury stage 1 coccyx/ sacral region, present on admission Hypovolemic hyponatremia secondary to alcoholism and dehydration, possibly due to poor oral intake, solute Moderated protein calorie malnutrition with a bmi of 20.5 76-year-old female came in with complains of generalized weakness and confusion. Patient denied any symptoms of urinary tract infection at this time but patient has significant abnormal urine and was started on antibiotics for urinary tract infection any other. Patient had urinary and fecal incontinence although no evidence of seizures was documented and reported by the family no tongue biting at this time patient also has significant alcoholism history presently not having any withdrawals patient is alert oriented 3 at this time patient says his last her last drink was 2 days ago patient was complaining of buttock pain apparently yesterday where she didn't have any decubitus ulceration patient denied any systemic symptoms to me patient has some vague abdominal pain in the epigastric area. Patient does have a smoking history, smokes about a pack per day 12/05/2021 Patient is seen and evaluated in room at bedside; the patient remains to be afebrile, the patient is breathing comfortably on room air, the patient denies having any chest pain did have some cough not bringing up any sputum the patient denies abdominal pain no diarrhea patient presented to hospital with generalized weakness no energy in this patient did have a significant elevated white count positive UA high clinical suspicion for symptomatic urinary tract infection likely complicated as the patient did have evidence of bacteremia likely secondary to urinary source. ultrasound kidney and bladder was negative for any nephrolithiasis or hydronephrosis blood and urine has been finalized with ESBL E. coli repeat blood culture had b een negative patient is currently covered with meropenem she will need a midline and will finish therapy with IV Invanz total duration of antibiotic will be 2 weeks 12/06/2021 --- patient presented to hospital with generalized weakness no energy in this patient did have a significant elevated white count positive UA high clinical suspicion for symptomatic urinary tract infection likely complicated as the patient did have evidence of bacteremia likely secondary to urinary source. -- ultrasound kidney and bladder was negative for any nephrolithiasis or hydronephrosis -blood and urine has been finalized with ESBL E. coli repeat blood culture had been negative -- patient has shown clinical improvement and will continue with meropenem she will need a midline and will finish therapy with IV Invanz total duration of antibiotic will be 2 weeks 12/07/2021 Patient is seen and evaluated and discussed with nursing staff and case management Vital signs are reviewed and remained stable Blood culture is positive for E. coli; repeat cultures are negative to date ID is on board and recommending the patient to continue IV antibiotic therapy with Invanz for 2 weeks Case management consulted and advised patient stable for discharge; insurance authorization is needed for transfer to skilled rehab Objective - Vital Signs Vital signs: Vital Signs Temp 98.1 F 12/07/21 08:00 Pulse 85 12/07/21 08:00 Resp 18 12/07/21 08:00 BP 144/86 12/07/21 08:00 Pulse Ox 94 L 12/07/21 08:00 FiO2 Intake & Output 12/06/21 12/07/21 12/07/21 18:59 06:59 18:59 Intake Total 240 Output Total 500 Balance -260 Intake: Oral 240 Output: Urine 500 Other: Voiding Method External Catheter External Catheter External Catheter - Exam GENERAL: The patient is alert and oriented x2, asleep although easily arousable ill-appearing, thin built, cachectic HEENT: Pupils are round and equally reacting to light. EOMI. No scleral icterus. No conjunctival pallor. Normocephalic, atraumatic. No pharyngeal erythema. No thyromegaly. CARDIOVASCULAR: S1 and S2 present. No murmurs, rubs, or gallops. PULMONARY: Chest is clear to auscultation, no wheezing or crackles. ABDOMEN: Soft, thin, scaphoid mildly tender on left lower quadrant, nondistended, normoactive bowel sounds. No palpable organomegaly. MUSCULOSKELETAL: No joint swelling or deformity. EXTREMITIES: No cyanosis, clubbing, or pedal edema. muscle wasting noted NEUROLOGICAL: Gross neurological examination did not reveal any focal deficits. Diffusely weak SKIN: No rashes. - Labs CBC & Chem 7: 12/06/21 07:54 12/06/21 07:54 Labs: Abnormal Lab Results - Last 24 Hours (Table) 12/06/21 Range/Units 07:54 Sodium 134 L (135-145) mmol/L Anion Gap 9.90 L (10.00-18.00) mmol/L BUN 7.8 L (9.0-27.0) mg/dL BUN/Creatinine Ratio 10.86 L (12.00-20.00) Ratio Calcium 8.0 L (8.7-10.3) mg/dL Microbiology - Last 24 Hours (Table) 12/03/21 08:04 Blood Culture - Preliminary Blood No Growth after 96 hours 12/02/21 11:46 Blood Culture - Preliminary Blood No Growth after 96 hours Assessment and Plan Assessment: -Acute urinary tract infection, present on admission with bacteremia showing E. coli -bacteremia most likely secondary to complicated UTI, ruled out sepsis -pressure injury stage 1 coccyx/ sacral region, present on admission -Hypovolemic hyponatremia secondary to alcoholism and dehydration, possibly due to poor oral intake, solute -moderated protein calorie malnutrition with a bmi of 20.5 -Hypomagnesemia, replace per protocol -Hypertension history -Continued ongoing alcohol abuse , monitor for any withdrawal signs although not actively withdrawing at this time -Nicotine use: Counseling was provided -Generalized weakness related to chronic alcoholism and may be a component of UTI that may have contributed to her weakness. 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 Recent repeat blood cultures have been negative for 24 hours Recommend PT/OT daily as patient is weak and debilitated mostly bed bound, will require ECF Recommend monitoring for any alcohol withdrawal and will use [facility] protocol as needed Recommend follow-up labs in the a.m. and repeat blood cultures daily to monitor for clearance of bacteremia Case management is following and working on possible ECF at [facility]
[2021-12-08] MEDS: MEROPENEM 1 GM in SODIUM CHLORIDE 0.9% 100 ML IVPB SCH ×3 (00:06→15:39)
[2021-12-08] MEDS: SODIUM CHLORIDE 0.9% 1,000 ML IV SCH ×2 (00:13→05:27)
[2021-12-08] MEDS: ENOXAPARIN 40 MG/0.4 ML SYRINGE SQ SCH (09:18)
[2021-12-08] MEDS: carvediloL 6.25 MG TAB PO SCH ×2 (09:19→18:21)
[2021-12-08] MEDS: PANTOPRAZOLE 40 MG/10 ML VIAL IV SCH (09:19)
[2021-12-08] MEDS: MEGESTROL 40 MG TAB PO SCH (09:19)
[2021-12-08 09:32] VITALS: RESP 17
--- NOTE | 2021-12-08 09:48 | CDI ---
Documentation Clarification Form Date: 12/08/2021 09:37:08 AM From: Marion Fitch RN CCDS Admit Date: 11/30/2021 08:40:00 PM Patient Name: Brenda Carlson Visit Number: [id number] Discharge Date: ATTENTION: The Clinical Documentation Specialists (CDI) and [facility] Coding Staff appreciate your assistance in clarifying documentation. Please respond to the clarification below the line at the bottom and electronically sign. The CDI & [facility] Coding staff will review the response and follow-up if needed. Please note: Queries are made part of the Legal Health Record. If you have any questions, please contact the author of this message via ITS. Dr. Valentín Johnston Conflicting documentation has been found in the medical record. As attending physician, please provide clarification. Bacteremia is due to UTI with sepsis, 12/03, Documenation Query. Bacteremia most likely secondary to complicated UTI, ruled out sepsis, Medicine progress note, 12/04 12/07. Patient history/risk factors: 76-year-old female presents to the ED with generalized weakness was found by family in a chair with urinary and fecal incontinence. Profoundly weak and could not ambulate. Medical History: HTN and Daily Alcohol use. ED Note, 11/30. Clinical Indicators: WBC, 11/30: 19.0 Neutrophils, 11/30: 17.0 Blood Culture, 11/30: Gram negative bacilli Escherichia coli Urine Culture, 11/30: Gram Negative Bacilli ID Consult, 11/30: Patient did have a significant elevated white count positive UA high clinical suspicion for symptomatic urinary tract infection likely complicated as the patient did have evidence of bacteremia likely secondary to urinary source. Treatment: 12/01 D/Cd on 12/01 Ceftriaxone 2gm IVPB Q24H one dose given; 12/02 Meropenem 1gm IVPB Q8HR; 11/30 0.9NS 1L bolus x 1. Please clarify which diagnosis is most appropriate: [ ] Bacteremia is due to UTI with sepsis [ ] Bacteremia is due to UTI without sepsis [ ] Other (please specify) [ ] Unable to determine Answered In DCS : Acute urinary tract infection, present on admission with bacteremia showing E. coli ESBL Bacteremia most likely secondary to complicated UTI with sepsis. Documented by Dr. Zapata (Template Last Revised: June 2020) YOBANID
[2021-12-08 11:15] LABS: Basophils # (A) 0.1 k/uL (0-0.2); Basophils % (A) 1 %; Eosinophils # (A) 0.5 k/uL (0-0.7); Eosinophils % (A) 4 %; HCT 50.7 % (34.0-46.0); HGB 16.2 gm/dL (11.4-16.0); Lymphocytes % (A) 8 %; MCH 29.7 pg (25.0-35.0); MCHC 31.9 g/dL (31.0-37.0); MCV 93.1 fL (80.0-100.0); Mean Platelet Volume 7.6; Monocytes # (A) 0.7 k/uL (0-1.0); Monocytes % (A) 5 %; Neutrophils % (A) 82 %; Platelet Count 290 k/uL (150-450); RBC 5.44 m/uL (3.80-5.40); RDW 14.6 % (11.5-15.5); WBC 13.5 k/uL (3.8-10.6)
[2021-12-08 11:38] LABS: African American GFR (CKD) >90 (>60 ml/min/1.73 sqM); Anion Gap 7 mmol/L; Blood Urea Nitrogen 9 mg/dL (7-17); Calcium 7.5 mg/dL (8.4-10.2); Carbon Dioxide 24 mmol/L (22-30); Chloride 102 mmol/L (98-107); Glucose 92 mg/dL (74-99); Non-African American GFR(CKD) 89 (>60 ml/min/1.73 sqM); Sodium 133 mmol/L (137-145)
[2021-12-08 11:47] LABS: Magnesium 1.4 mg/dL (1.6-2.3); Potassium 3.5 mmol/L (3.5-5.1)
[2021-12-08] MEDS ORDERED: POTASSIUM CHLORIDE ER 20 MEQ TAB.ER PO STA (15:05)
[2021-12-08] MEDS ORDERED: MAGNESIUM OXIDE 400 MG TAB PO STA (15:05)
--- NOTE | 2021-12-08 15:24 | P.DS ---
Providers Date of admission: 11/30/21 20:40 Attending physician: Art Rock Consults: 12/01/21 17:48 Consult Physician Urgent Consulting Provider: Lesa Nina Consult Reason/Comments: bacteremia Do you want consulting provider notified?: Yes Primary care physician: Patti Edwards MD Hospital Course: Diagnsosis Acute urinary tract infection, present on admission with bacteremia showing E. coli ESBL Bacteremia most likely secondary to complicated UTI with sepsis Pressure injury stage 1 coccyx/ sacral region, present on admission Hypovolemic hyponatremia secondary to alcoholism and dehydration, possibly due to poor oral intake, solute Moderated protein calorie malnutrition with a bmi of 20.5 Leukocytosis Hypokalemia from poor oral intake Hypomagnesemis from poor oral intake, component of chronic alcohol use Chronic alcohol use Chronic daily nicotine use Full Code Discharge Disposition Patient stable for discharge to Rehab today with midline in place. Patient to complete 2 weeks of antibiotic therapy with IV invanz. Follow up with primary care in 2 to 3 days, patient will also have repeat labs in 2 to 3 days as well. Hospital Course This is a 76 year old female with medical history of hypertension, daily nicotine use and chronic daily alcohol use. She presents with generalized weakness and confusion. She has been staying in family vacation home without her there. Patient does deny dysuria however urinalysis was abnormal and she was started on empiric antibiotic coverage for UTI. Patient does have urinary and fecal incontinence. There was no evidence for seizure activity patient does have chronic history of alcoholism she is not currently having any withdrawal symptoms and was monitored closely for acute alcohol withdrawal this admission. Patient is alert 3 states her last drink was 2 days ago on admission she does complain of some buttock pain there is a stage I pressure injury. Patient does also report to smoking about a pack of cigarettes per day. She does have moderate protein calorie malnutrition and has been on protein supplement ensure between meals which can be continued. She was admitted to the hospital for UTI with sepsis and infectious disease services was placed on consultation. She presents with white count 19.0, hemoglobin 16.1, sodium 129, potassium 4.2, chloride 96, CO2 21, magnesium of 1.2, lactic acid 1.3. BUN is 29, creatinine 0.91, troponin is negative, proBNP 3600. Urine culture positive for E. coli ESBL and kluyvera ascorbata Blood culture was also positive for E.Coli ESBL with repeat culture negative. Patient had ultrasound kidney renal and bladder which is negative for hydronephrosis and there is no nephrolithiasis. No masses are identified. She did have an indwelling catheter placed. Patient received IV meropenem during hospital stay and will discharge on 2 weeks of IV invanz antibiotic therapy through midline. 12/08/2021 Patient evaluated today resting in bed. She is alert 3. Patient is being tr eated for UTI with sepsis with E. coli ESBL. She is pending midline placement for antibiotic therapy for discharge. Plan is for discharge to when rehab later on today. Magnesium today was 1.4, 3 g of magnesium supplementation was ordered and also will start patient on magnesium supplement 400 mg twice a day, she also received 40 meq of potassium for level of 3.5 today. She will discharge on oral potassium 20 meq daily as well as thiamine daily due to history of chronic alcohol use. Otherwise patiengs lungs are clear, S1 S2 auscultated, her abdomen is soft and nontender. She was also started on appetite stimulant and staff reports it is working well and she is eating more of her meals. She has been started also on ensure supplements twice a day and tolerating well. She received IV hydration with normal saline. Hyponatremia is probably component of chronic alcohol use. We are giving scripts for repeat BMP, magnesium, CBC on discharge. Patient is afebrile, heart rate 75, blood pressure 154/88, 96% room air. Please see medication reconciliation for a list of current medication. Thank you for allowing us to participate in the care of this patient. Total time taken in discharge planning greater than 35 minutes. The impression and plan of care has been dictated by Janice Cardona, Nurse Practitioner as directed. Dr. Jodi MD I have performed a history and physical examination and medical decision making of this patient, discussed the same with the dictator, and agree with the dictators assessment and plan as written, documented as a scribe. Based on total visit time, I have performed more than 50% of this visit. Patient Condition at Discharge: Fair Plan - Discharge Summary New Discharge Prescriptions: New Potassium Chloride ER [K-Dur 20] 20 meq PO DAILY tab Megestrol [Megace] 80 mg PO DAILY #0 tab Acetaminophen Tab [Tylenol] 650 mg PO Q6HR PRN tab PRN Reason: Mild Pain Or Fever > 100.5 Magnesium Oxide [Mag-Ox] 400 mg PO BID tab Thiamine [Vitamin B-1] 100 mg PO DAILY #30 tablet Continue carvediloL [Coreg] 6.25 mg PO BID Aspirin EC [Ecotrin Low Dose] 81 mg PO DAILY PRN PRN Reason: Pain Albuterol Inhaler [Ventolin Hfa Inhaler] 2 puff INHALATION RT-QID PRN PRN Reason: Shortness Of Breath Discharge Medication List Albuterol Inhaler [Ventolin Hfa Inhaler] 2 puff INHALATION RT-QID PRN 11/30/21 [History] Aspirin EC [Ecotrin Low Dose] 81 mg PO DAILY PRN 11/30/21 [History] carvediloL [Coreg] 6.25 mg PO BID 11/30/21 [History] Acetaminophen Tab [Tylenol] 650 mg PO Q6HR PRN tab 12/08/21 [Rx] Magnesium Oxide [Mag-Ox] 400 mg PO BID tab 12/08/21 [Rx] Megestrol [Megace] 80 mg PO DAILY #0 tab 12/08/21 [Rx] Potassium Chloride ER [K-Dur 20] 20 meq PO DAILY tab 12/08/21 [Rx] Thiamine [Vitamin B-1] 100 mg PO DAILY #30 tablet 12/08/21 [Rx] Follow up Appointment(s)/Referral(s): Irasema Webster, [NON-STAFF] - As Needed Patti Edwards MD [Primary Care Provider] - 1-2 days Lesa Nina MD [STAFF PHYSICIAN] - 1 Week Ambulatory/Diagnostic Orders: Basic Metabolic Panel [LAB.AMB] Time Frame: 2 Days, Location: None Selected Complete Blood Count w/diff [LAB.AMB] Time Frame: 2 Days, Location: None Selected Magnesium [LAB.AMB] Time Frame: 2 Days, Location: None Selected Activity/Diet/Wound Care/Special Instructions: Patient is pending midline placement Discharge to [facility] on IV antibiotics per infectious disease recommendations IV invanz for 2 weeks of antibiotic therapy
[2021-12-08] MEDS: MAGNESIUM SULFATE-D5W PMX 1 GM in DEXTROSE/WATER 1 100ML.BAG IVPB SCH ×3 (15:35→17:39)
[2021-12-08 15:49] VITALS: BP 129/71; PULSE 74; TEMP 97.8
== END 2021-12-08 22:17 | DRG 872 ==
LOC: EC 16:29 → 4SSUR 20:40
PROVIDERS: ADMIT Hospitalist; ATTEND Hospitalist
PROC: 05HC33Z Insertion of Infusion Device into Left Basilic Vein, Percutaneous Approach (ICD-10-PCS; 2021-12-07 07:30)
PROC: 05HB33Z Insertion of Infusion Device into Right Basilic Vein, Percutaneous Approach (ICD-10-PCS; principal; 2021-12-08 14:40)
DX: A41.51 Sepsis due to Escherichia coli [E. coli] (principal); N39.0 Urinary tract infection, site not specified; E87.0 Hyperosmolality and hypernatremia; E44.0 Moderate protein-calorie malnutrition; E87.1 Hypo-osmolality and hyponatremia; Z16.12 Extended spectrum beta lactamase (ESBL) resistance; J44.9 Chronic obstructive pulmonary disease, unspecified; R62.7 Adult failure to thrive; Z68.20 Body mass index [BMI] 20.0-20.9, adult; Z71.6 Tobacco abuse counseling; K29.20 Alcoholic gastritis without bleeding; E86.0 Dehydration; E86.1 Hypovolemia; F10.20 Alcohol dependence, uncomplicated; R56.9 Unspecified convulsions; L89.151 Pressure ulcer of sacral region, stage 1; E83.42 Hypomagnesemia; E87.6 Hypokalemia; F17.210 Nicotine dependence, cigarettes, uncomplicated; I10 Essential (primary) hypertension; R32 Unspecified urinary incontinence; Z79.82 Long term (current) use of aspirin; Z79.899 Other long term (current) drug therapy
CPT/HCPCS: 36410; 36415; 71046; 76770; 76937; 80048; 80053; 81001; 83605; 83735; 83880; 84484; 85025; 85027; 85610; 85730; 87040; 87077; 87086; 87186; 93005; 94640; 96361; 96365; 96366; 96367; 96375; 99285

== ENCOUNTER 2022-10-08 16:25 | Emergency (ER) | payer MEDICARE ==
--- NOTE | 2022-10-08 16:35 | ED ---
General Adult HPI - General Stated complaint: Possible Stroke Time Seen by Provider: 10/08/22 16:28 - History of Present Illness Initial comments: Dictation was produced using [employer] dictation software. please excuse any grammatical, word or spelling errors. Chief Complaint: 77-year-old female past medical history hypertension presents to the ER for strokelike symptoms History of Present Illness: Patient's 77-year-old female presents emergency department via EMS from home. At approximately 345 patient began having strokelike symptoms. She became confused and borderline aphasic. EMS providers history present illness. Did obtain history from son. Patient was has no history of intracranial bleeding. No history of any coagulation use. Discharge summary was reviewed from 12/08/2021. She is admitted at bedtime for acute u rinary tract infection with ESBL E. coli. She has history of hypovolemic hyponatremia. She has history of alcoholism. Nicotine use. EMS reports that upon initial arrival patient was very symptomatic. En route to the emergency department symptoms improved. Unable to obtain secondary to patient's mental status - Related Data Home Medications Medication Instructions Recorded Confirmed Albuterol Inhaler [Ventolin Hfa 2 puff INHALATION RT-QID PRN 11/30/21 10/08/22 Inhaler] carvediloL [Coreg] 6.25 mg PO DAILY 11/30/21 10/08/22 Allergies Allergy/AdvReac Type Severity Reaction Status Date / Time No Known Allergies Allergy Verified 10/08/22 17:43 Review of Systems ROS Statement: Those systems with pertinent positive or pertinent negative responses have been documented in the HPI. ROS Other: All systems not noted in ROS Statement are negative. Past Medical History Past Medical History: Hypertension History of Any Multi-Drug Resistant Organisms: None Reported Date of last positivie culture/infection: 11/30/21 ESBL E.coli MDRO Source:: Blood and Urine Additional Past Surgical History / Comment(s): D&C Past Anesthesia/Blood Transfusion Reactions: No Reported Reaction Past Psychological History: No Psychological Hx Reported Smoking Status: Current every day smoker Past Alcohol Use History: Daily, Heavy Additional Past Alcohol Use History / Comment(s): Pt states she drinks a half of a half pint a day. States she's been drinking since she was 18 and quit for 12 years and has never gone through DTs. Past Drug Use History: Marijuana General Exam - General Exam Comments Initial Comments: PHYSICAL EXAM: General Impression: Alert and oriented x1/4, not in acute distress HEENT: Normocephalic atraumatic, extra-ocular movements intact, pupils equal and reactive to light bilaterally, mucous membranes moist. Cardiovascular: Heart regular rate and rhythm Chest: Able to complete full sentences, no retractions, no tachypnea Abdomen: abdomen soft, non-tender, non-distended, no organomegaly Musculoskeletal: Pulses present and equal in all extremities, no peripheral edema Motor: no focal deficits noted Neurological: CN II-XII grossly intact, aphasic, encephalopathic, mildly uncooperative, she is weakness of bilateral lower extremities, she does not follow detailed commands. No slurred speech Skin: Intact with no visualized rashes Psych: Normal affect and mood Course Vital Signs 10/08/22 10/08/22 10/08/22 16:30 16:45 17:02 Temperature 97.9 F Pulse Rate 81 63 59 L Respiratory 16 16 16 Rate Blood Pressure 155/81 149/80 148/75 O2 Sat by Pulse 99 99 99 Oximetry 10/08/22 10/08/22 10/08/22 17:15 17:30 17:45 Temperature Pulse Rate 66 98 63 Respiratory 18 16 16 Rate Blood Pressure 155/76 159/66 158/99 O2 Sat by Pulse 99 99 99 Oximetry 10/08/22 10/08/22 10/08/22 18:00 18:45 19:13 Temperature Pulse Rate 60 62 78 Respiratory 16 16 18 Rate Blood Pressure 149/84 174/92 179/97 O2 Sat by Pulse 99 99 98 Oximetry - Reevaluation(s) Reevaluation #1: 10/08/22 17:03 Patient 77 her old female presents with altered mental status. Last known normal was allegedly 45 minutes prior to arrival. Patient upon initial EMS encounter showed patient was symptomatic than when she arrived to the emergency room. Code alteplase was paged. NIH score of 4. Patient not a candidate due to risk outweighed the benefits. She has improving neurologic symptoms. Computed tomography scan of the brain shows acute/subacute stroke to the left temporal lobe. Reevaluation #2: 10/08/22 18:14 Case was discussed with Rebecca at approximately smell a 6:10 PM who is mid- level provider covering for Dr. Kimbrough. She was told in detail patient's imaging studies and clinical presentation. She states that she will speak about this case with another physician because Dr. Kimbrough is scrubbed in. She reports that she will call us back Reevaluation #3: 10/08/22 18:33 Patient reevaluated at the bedside with improvement and a score of 12. Rebecca recommended that patient be transferred. Son at the bedside requested she be transferred to [facility] for further care EKG Findings - EKG Comments: EKG Findings:: My EKG interpretation: Ventricular rate 61, sinus rhythm,. Interval 93, QRS 76, QTC 390. No SD prolongation, no QTC prolongation, no ST or T-wave changes noted. Overall, this EKG is unremarkable Medical Decision Making - Medical Decision Making Was pt. sent in by a medical professional or institution (, PA, [employer], urgent care, hospital, or half-way...) When possible be specific @ -No Did you speak to anyone other than the patient for history (EMS, parent, family, police, friend...)? What history was obtained from this source @ -EMS and son as stated above Did you review nursing and triage notes (agree or disagree)? Why? @ -I reviewed and agree with nursing and triage notes Were old charts reviewed (outside hosp., previous admission, EMS record, old EKG, old radiological studies, urgent care reports/EKG's, half-way records)? Report findings @ -Previous charting was reviewed as described above. Patient had been admitted for encephalopathy in the past Differential Diagnosis (chest pain, altered mental status, abdominal pain women, abdominal pain men, vaginal bleeding, musculoskeletal, weakness, fever, dysp lucy, syncope, headache, dizziness, GI bleed, back pain, seizure, CVA, palpatations, mental health)? @ - Differential CVA: Ischemic stroke, hemorrhagic stroke, brain tumor, atypical migraine, Wernicke's encephalopathy, seizure, multiple sclerosis, meningitis, encephalitis, hypo glycemia, Guillain-Fitch, electrolytes disturbance, myasthenia gravis.... This is not meant to be an all-inclusive list EKG interpreted by me (3pts min.). @ -See above X-rays interpreted by me (1pt min.). @ -Two-view chest x-ray is unremarkable CT interpreted by me (1pt min.). @ -Computed tomography scan of the brain shows acute/subacute CVA involving the left temporal lobe. 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 U/S interpreted by me (1pt. min.). @ -None done What testing was considered but not performed or refused? (CT, X-rays, U/S, labs)? Why? @ -None What meds were considered but not given or refused? Why? @ -None Did you discuss the management of the patient with other professionals (roland lynn i.e. , PA, [employer], lab, RT, psych nurse, social services assistant, ceo [place], teacher, bank officer, case mgr)? Give summary @ -case discussed with Rebecca who is part of the stroke network covering Dr. Kimbrough. Rebecca reports that she discuss case with alternate stroke neurologist who reviewed the films and recommended transfer to [facility] for further care. Was smoking cessation discussed for >3mins.? @ -No Was critical care preformed (if so, how long)? @ -73 Were there social determinants of health that impacted care today? How? (Homelessness, low income, unemployed, alcoholism, drug addiction, transportation, low edu. Level, literacy, decrease access to med. care, senior care, rehab)? @ -No Was there de-escalation of care discussed even if they declined (Discuss DNR or withdrawal of care, Hospice)? DNR status @ -No What co-morbidities impacted this encounter? (DM, HTN, Smoking, COPD, CAD, Cancer, CVA, ARF, Chemo, Hep., AIDS, mental health diagnosis, sleep apnea, morbid obesity)? @ -None Was patient admitted / discharged? Hospital course, mention meds given and route, prescriptions, significant lab abnormalities, going to OR and other pertinent info. @ -77 Year-old female presents to the emergency department for strokelike symptoms. Patient did present within the TPA window however she had a low NIH scale and was not given thrombolytics due to risk outweighing the benefits. Patient given aspirin. Patient will be transferred to [facility] for further care per recommendation by stroke network. patient accepted for transfer by Dr. Hickman and [facility] Undiagnosed new problem with uncertain prognosis? @ -No Drug Therapy requiring intensive monitoring for toxicity (Heparin, Nitro, Insulin, Cardizem)? @ -No Were any procedures done? @ -No Diagnosis/symptom? Acute, or Chronic, or Acute on Chronic? Uncomplicated (without systemic symptoms) or Complicated (systemic symptoms)? @ -1. CVA, and no thrombolytics given Side effects of treatment? @ -No Exacerbation, Progression, or Severe Exacerbation? @ -No Poses a threat to life or bodily function? How? (Chest pain, USA, ME, pneumonia, PE, COPD, DKA, ARF, appy, cholecystitis, CVA, Diverticulitis, Homicidal, Suicidal, threat to staff... and all critical care pts) @ -yes - Lab Data Result diagrams: 10/08/22 16:55 10/08/22 16:55 Lab Results 10/08/22 10/08/22 10/08/22 Range/Units 16:55 16:55 16:55 WBC 5.6 (3.8-10.6) k/uL RBC 4.45 (3.80-5.40) m/uL Hgb 13.9 (11.4-16.0) gm/dL Hct 41.5 (34.0-46.0) % MCV 93.2 (80.0-100.0) fL MCH 31.3 (25.0-35.0) pg MCHC 33.6 (31.0-37.0) g/dL RDW 12.6 (11.5-15.5) % Plt Count 147 L (150-450) k/uL MPV 8.9 Neutrophils % 49 % Lymphocytes % 39 % Monocytes % 6 % Eosinophils % 4 % Basophils % 0 % Neutrophils # 2.7 (1.3-7.7) k/uL Lymphocytes # 2.2 (1.0-4.8) k/uL Monocytes # 0.3 (0-1.0) k/uL Eosinophils # 0.2 (0-0.7) k/uL Basophils # 0.0 (0-0.2) k/uL PT 10.7 (9.0-12.0) sec INR 1.0 (<1.2) APTT 19.3 L (22.0-30.0) sec Sodium 137 (137-145) mmol/L Potassium 4.1 (3.5-5.1) mmol/L Chloride 101 (98-107) mmol/L Carbon Dioxide 28 (22-30) mmol/L Anion Gap 8 mmol/L BUN 17 (7-17) mg/dL Creatinine 0.90 (0.52-1.04) mg/dL Est GFR (CKD-EPI)AfAm 72 (>60 ml/min/1.73 sqM) Est GFR (CKD-EPI)NonAf 63 (>60 ml/min/1.73 sqM) Glucose 89 (74-99) mg/dL Calcium 9.3 (8.4-10.2) mg/dL Total Bilirubin 0.5 (0.2-1.3) mg/dL AST 23 (14-36) U/L ALT 11 (4-34) U/L Alkaline Phosphatase 76 (38-126) U/L Creatine Kinase 24 L (30-135) U/L Troponin I (0.000-0.034) ng/mL Total Protein 7.0 (6.3-8.2) g/dL Albumin 3.7 (3.5-5.0) g/dL 10/08/22 Range/Units 16:55 WBC (3.8-10.6) k/uL RBC (3.80-5.40) m/uL Hgb (11.4-16.0) gm/dL Hct (34.0-46.0) % MCV (80.0-100.0) fL MCH (25.0-35.0) pg MCHC (31.0-37.0) g/dL RDW (11.5-15.5) % Plt Count (150-450) k/uL MPV Neutrophils % % Lymphocytes % % Monocytes % % Eosinophils % % Basophils % % Neutrophils # (1.3-7.7) k/uL Lymphocytes # (1.0-4.8) k/uL Monocytes # (0-1.0) k/uL Eosinophils # (0-0.7) k/uL Basophils # (0-0.2) k/uL PT (9.0-12.0) sec INR (<1.2) APTT (22.0-30.0) sec Sodium (137-145) mmol/L Potassium (3.5-5.1) mmol/L Chloride (98-107) mmol/L Carbon Dioxide (22-30) mmol/L Anion Gap mmol/L BUN (7-17) mg/dL Creatinine (0.52-1.04) mg/dL Est GFR (CKD-EPI)AfAm (>60 ml/min/1.73 sqM) Est GFR (CKD-EPI)NonAf (>60 ml/min/1.73 sqM) Glucose (74-99) mg/dL Calcium (8.4-10.2) mg/dL Total Bilirubin (0.2-1.3) mg/dL AST (14-36) U/L ALT (4-34) U/L Alkaline Phosphatase (38-126) U/L Creatine Kinase (30-135) U/L Troponin I <0.012 (0.000-0.034) ng/mL Total Protein (6.3-8.2) g/dL Albumin (3.5-5.0) g/dL Disposition Clinical Impression: Cerebrovascular accident (CVA) Disposition: OTHER INSTITUTION NOT DEFINED Condition: Serious Referrals: None,Stated [REFERRING] - 1-2 days Time of Disposition: 18:38 - Out of Hospital Transfer - Req. Specs Out of Hospital Transfer - Requested Specifics: Other Emergency Center ([facility])
--- NOTE | 2022-10-08 16:58 | CT ---
EXAMINATION TYPE: CT brain wo con CT DLP: 1147.4 mGycm, Automated exposure control for dose reduction was used. DATE OF EXAM: 10/08/2022 4:42 PM COMPARISON: None. CLINICAL INDICATION:Female, 77 years old with history of Neuro deficit, acute, stroke suspected, Neur o deficit, acute, stroke suspected TECHNIQUE: Brain: Axial CT images of the brain were obtained with coronal and sagittal reformats created and rev iewed. Contrast used: None. Oral contrast used: None. FINDINGS: Brain: Extra-axial spaces: No abnormal extra-axial fluid collections. Ventricular system: Dilatation in proportion to cerebral atrophy. Cerebral parenchyma: Bhatti-white matter loss of differentiation involving the left temporal lobe. Cere bral atrophy. No acute intraparenchymal hemorrhage or mass effect. The remainder of the bhatti-white j unctions are well differentiated. Scattered hypoattenuating areas are seen within the white matter. Cerebellum: Unremarkable. Mass effect: No evidence of midline shift. Intracranial vasculature: Atherosclerotic calcifications of the intracranial vessels. Soft tissues: Normal. Calvarium/osseous structures: No depressed skull fracture. Paranasal sinuses and mastoid air cells: Mild scattered paranasal sinus disease. Visualized orbits: Orbital contents are intact. IMPRESSION: 1. Acute/subacute CVA involving thee left temporal lobe. No hemorrhagic conversion. 2. Nonspecific white matter changes, likely no marking right secondary to chronic small vessel ischem ic disease.
[2022-10-08 17:04] LABS: Basophils % (A) 0 %; Eosinophils # (A) 0.2 k/uL (0-0.7); Eosinophils % (A) 4 %; HCT 41.5 % (34.0-46.0); HGB 13.9 gm/dL (11.4-16.0); Lymphocytes # (A) 2.2 k/uL (1.0-4.8); Lymphocytes % (A) 39 %; MCH 31.3 pg (25.0-35.0); MCHC 33.6 g/dL (31.0-37.0); MCV 93.2 fL (80.0-100.0); Mean Platelet Volume 8.9; Monocytes # (A) 0.3 k/uL (0-1.0); Monocytes % (A) 6 %; Neutrophils # (A) 2.7 k/uL (1.3-7.7); Neutrophils % (A) 49 %; Platelet Count 147 k/uL (150-450); RBC 4.45 m/uL (3.80-5.40); RDW 12.6 % (11.5-15.5); WBC 5.6 k/uL (3.8-10.6)
--- NOTE | 2022-10-08 17:10 | CT ---
EXAMINATION TYPE: CT angio head neck CT DLP: 354.7 mGycm, Automated exposure control for dose reduction was used. DATE OF EXAM: 10/08/2022 5:01 PM COMPARISON: CT head same day. CLINICAL INDICATION:Female, 77 years old with history of Neuro deficit, acute, stroke suspected; PHH, Neuro deficit, acute, stroke suspected TECHNIQUE: Axially acquired helical CT angiogram of the head and neck was obtained with contrast. Axi al images are supplemented with 3D reconstructions [facility] NASCET criteria used. Contrast used:65ml mL of Isovue 370 with IV Contrast, Oral contrast used: None. FINDINGS: CTA HEAD: Loss of deng-white differentiation involving the left temporal lobe. No evidence of acute intracranial hemorrhage, mass effect, or midline shift. The ventricles, sulci, a nd cisterns are unremarkable. 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 Series 407 image 32. The visualized portions of the internal carotid arteries, middle cerebral arteries, anterior cerebral arteries, and posterior cerebral arteries are patent. The basilar and vertebral arteries are patent. CTA NECK: Right Carotid System: The common carotid and external carotid arteries are patent. There is approximately 75 -90 % stenosis at the carotid bifurcation secondary to calcified/noncalcified plaquing. The rest of the internal ca rotid artery is patent. Left Carotid System: The common carotid and external carotid arteries are patent. There is approximately 75-90 % stenosis at the carotid bifurcation secondary to calcified/noncalcified plaquing. The rest of the internal car otid artery is patent. Vertebral arteries are patent without evidence hemodynamically significant stenosis. There is a three-vessel aortic arch. The origins of the great vessels are patent. No evidence of hemo dynamically significant stenosis. Atherosclerosis of the origins of the great vessels most pronounced at the left subclavian artery. The great vessels are intact. Upper thorax: Mild centrilobular and paraseptal emphysema changes. Interlobular septal thickening. Ri ght thyroid 8 mm nodule. IMPRESSION: 1. No evidence of vascular occlusion. 2. Atherosclerosis at the carotid bifurcations with at least 75-90% stenosis bilaterally secondary a nomaly calcified plaque.. 3. 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
[2022-10-08 17:14] LABS: ALT 11 U/L (4-34); AST 23 U/L (14-36); African American GFR (CKD) 72 (>60 ml/min/1.73 sqM); Albumin 3.7 g/dL (3.5-5.0); Alkaline Phosphatase 76 U/L (38-126); Anion Gap 8 mmol/L; Blood Urea Nitrogen 17 mg/dL (7-17); Calcium 9.3 mg/dL (8.4-10.2); Carbon Dioxide 28 mmol/L (22-30); Chloride 101 mmol/L (98-107); Creatine Kinase 24 U/L (30-135); Glucose 89 mg/dL (74-99); Non-African American GFR(CKD) 63 (>60 ml/min/1.73 sqM); Potassium 4.1 mmol/L (3.5-5.1); Sodium 137 mmol/L (137-145); Total Bilirubin 0.5 mg/dL (0.2-1.3)
[2022-10-08 17:24] LABS: Partial Thromboplastin Time 19.3 sec (22.0-30.0)
[2022-10-08 17:25] LABS: Prothrombin Time 10.7 sec (9.0-12.0)
--- NOTE | 2022-10-08 17:44 | XR ---
EXAMINATION TYPE: XR chest 2V DATE OF EXAM: 10/08/2022 5:38 PM COMPARISON: Chest radiographs from 11/30/2021 TECHNIQUE: XR chest 2V Frontal and lateral views of the chest. CLINICAL INDICATION:Female, 77 years old with history of altered mental status; FINDINGS: Lungs/Pleura: There is no evidence of pleural effusion, focal consolidation, or pneumothorax. Pulmonary vascularity: Unremarkable. Heart/mediastinum: Cardiomediastinal silhouette is unremarkable. Musculoskeletal: No acute osseous pathology. IMPRESSION: 1. No acute cardiopulmonary disease process. 2. COPD changes.
[2022-10-08] MEDS ORDERED: ASPIRIN 81 MG PO STA (18:35)
[2022-10-08 19:21] VITALS: RESP 18
[2022-10-08 20:12] VITALS: BP 178/76; PULSE 84; TEMP 98.1
== END 2022-10-08 19:56 | disposition other institution (70) ==
LOC: EC 16:25
DX: I63.9 Cerebral infarction, unspecified (principal); I65.23 Occlusion and stenosis of bilateral carotid arteries; I10 Essential (primary) hypertension; J44.9 Chronic obstructive pulmonary disease, unspecified; F17.200 Nicotine dependence, unspecified, uncomplicated
CPT/HCPCS: 36415; 93005; 80053; 82550; 84484; 85025; 85610; 85730; 71046; 70496; 70450; 70498; 99285; Q9967